=== PATIENT | male | born 1955 | race Caucasian/White ===

== ENCOUNTER 2024-05-14 13:50 | Outpatient (REF) | payer MEDICARE, BC, SELFPAY ==
[2024-05-14 15:47] LABS: MANUAL DIFF FLAG NO
[2024-05-14 16:12] LABS: Basophils Absolute Auto 0.1 X10*3/uL (0.0-0.2); Basophils Percent Auto 0.8 % (0-2); Eosinophils Absolute Auto 0.1 X10*3/uL (0.0-0.4); Eosinophils Percent Auto 2.1 % (0-4); Hematocrit 38.3 % (42.0-52.0); Hemoglobin 12.9 g/dl (14.0-18.0); Imm Gran Abs Auto 0.04 X10*3/uL (0.00-0.03); Imm Gran Pct Auto 0.6 % (0.0-0.4); Lymphocytes Absolute Auto 2.3 X10*3/uL (1.2-4.9); Lymphocytes Percent Auto 34.5 % (20-40); Mean Corpuscular HGB Conc 33.7 g/dl (31.0-36.0); Mean Corpuscular Hemoglobin 28.9 pg (27.0-33.0); Mean Corpuscular Volume 85.9 fL (80.0-98.0); Monocytes Absolute Auto 0.5 X10*3/uL (0.1-1.2); Monocytes Percent Auto 8.1 % (2-11); Neutrophils Absolute Auto 3.5 x10*3/uL (2.0-8.3); Neutrophils Percent Auto 53.9 % (45-73); Platelet Count 153 X10*3/uL (160-400); Red Blood Count 4.46 X10*6/uL (4.60-5.80); Red Cell Distribution Width 13.1 % (11.0-16.0); White Blood Count 6.5 X10*3/uL (4.8-10.8)
[2024-05-14 17:19] LABS: Alanine Aminotransferase 27 U/L (0-40); Albumin Level 3.7 g/dL (3.5-5.0); Alkaline Phosphatase 65 U/L (39-117); Anion Gap 8 (12-20); Aspartate Amino Transferase 29 U/L (5-37); Bilirubin Direct 0.3 mg/dL (0.0-0.5); Bilirubin Total 0.9 mg/dL (0.0-1.0); Blood Urea Nitrogen 15 mg/dL (9-16); Calcium 9.1 mg/dL (8.4-10.2); Carbon Dioxide 25 mmol/L (22-29); Chloride 108 mmol/L (96-108); Estimated Glomerular Filt Rate > 60; Glucose Random 82 mg/dL (60-115); Potassium 4.3 mmol/L (3.3-5.1); Sodium 137 mmol/L (135-145); Total Protein 8.6 g/dL (6.5-8.0)
--- OUTSIDE RECORDS SUMMARY | 2024-05-14 17:44 | XMS_ITS | Encounter Summary ---
Author Organization [facility] Address [address] [place] [address] Care Team Providers Care Foreclosure Specialist Name Role Phone Adam Rossi MD Primary Care Provider [phone] Jack Adkins MD Primary Care Provider [phone] Stephen Martins MD Primary Care Provider [phone] Fabian Correa MD Primary Care Provider [phone] Kathleen Ball DNP Unavailable [phone] Martha Crump NATURAL RESOURCE ECONOMIST BC Unavailable Unavail able Ewa Nino MD Primary Care Provider [phone] Encounter Details Date Type Department Care Team (Late st Contact Info) Description 07/19/2006 Orders Only [facility] Otolaryngology [address] [place] [address] [address] [place] [address] Alis Ortega, RN [address] [place] [id number] Social History Tobacco Use Types Packs/Day Years [...] 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 Not on file Not on file documented as of this encounter Plan of Treatment Not on file documented as of this encounter Visit Diagnoses Not on filedocumented in this encounter Care Teams Foreclosure Specialist Relationship Specialty Start Date End Date Adam Rossi MD [address] [place] [address] PCP - General 08/10/09 03/19/14 Jack Adkins MD [address] [place] [address] PCP - General 11/17/08 08/09/09 Stephen Martins MD [address] [place] [address] PCP - General 11/11/07 11/16/08 Fabian Correa MD [address] [place] [address] PCP - General 06/22/06 11/10/07 Kathleen Ball, ARIEL [address] [place] [address] PCP - Backup PCP 11/11/07 05/18/11 Martha Crump, NATURAL RESOURCE ECONOMIST [address] [place] [address] PCP - Backup PCP Internal Medicine 05/19/11 04/20/14 Ewa Nino MD [address] [place] [address] PCP - General Family Medicine 03/20/14 documented as of this encounter
--- OUTSIDE RECORDS SUMMARY | 2024-05-14 17:44 | XMS_ITS | Encounter Summary ---
Author Organization [facility] Address [address] [place] [address] Care Team Providers Care Manager Core Name Role Phone Adam Rossi MD Primary Care Provider [phone] Martha Crump APRN Unavailable Unavail able Eaw Nino MD Primary Care Provider [phone] Reason for Referral * OUTPT PROCEDURES AND DIAGNOSTICS (Routine) - ZZ Not Required Specialty Diagnoses / Procedures Referred By Contyeyo t Referred To Contact Diagnoses Snoring Procedures REQUEST FOR SLEEP STUDY NON-FC Pepe Kincaid MD [address] [place] [address] Phone: tel: fax: [facility] [address] [place] [address] Referral ID Status Reason Start Date Expiration Date Visits Requested Visits Authorized [id number] ZZ Not Required Specialty Services Required 03/14/2013 1 1 Encounter Details Date Type Department Care Team (Late st Contact Info) Description 03/14/2013 Orders Only [facility] Pulmonary [address] [facility] [address] [place] [address] Pepe Kincaid MD [address] [place] [address] Social History Tobacco Use Types [...] 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 file Not on file documented as of this encounter Plan of Treatment Scheduled Orders Name Type Priority Associated Diagnoses Orde r Schedule REQUEST FOR SLEEP STUDY NON-FC Procedures Routine Snoring Ordered: 03/14/2013 documented as of this encounter Visit Diagnoses Diagnosis Snoring- Primary Other dyspnea and respiratory abnormality documented in this encounter Care Teams Manager Core Relationship Specialty Start Date End Date Adam Rossi MD [address] [place] [address] PCP - General 08/10/09 03/19/14 Martha Crump APRN [address] [place] [address] PCP - Backup PCP Internal Medicine 05/19/11 04/20/14 Ewa Nino MD [address] [place] [address] PCP - General Family Medicine 03/20/14 documented as of this encounter
--- OUTSIDE RECORDS SUMMARY | 2024-05-14 17:45 | XMS_ITS | Encounter Summary ---
Author Organization [facility] Address [address] [place] [address] Care Team Providers Care Electrical Mechanic Name Role Phone Adam Rossi MD Primary Care Provider [phone] Jack Adkins MD Primary Care Provider [phone] Stephen Martins MD Primary Care Provider [phone] Fabian Correa MD Primary Care Provider [phone] Kathleen Ball DNP Unavailable [phone] Martha Crump DIRECTOR STRATEGIC ACCOUNT MANAGEMENT BC Unavailable Unavail able Ewa Nino MD Primary Care Provider [phone] Encounter Details Date Type Department Care Team (Late st Contact Info) Description 09/05/2006 Orders Only [facility] [address] [place] [phone] MD [address] [place] [address] Social History Tobacco Use Types Packs/Day Years [...] 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 Not on file documented as of this encounter Plan of Treatment Not on file documented as of this encounter Results * Due to [place] state law, this organization might not be [...] RESULT Final Resul t [facility] [address] [place] [address] documented in this encounter Visit Diagnoses Diagnosis OSTEOARTHRITIS- Primary Osteoarthrosis, unspecified whether generalized or localized, unspecified site OSTEOARTHRITIS Osteoarthrosis, unspecified whether generalized or localized, unspecified site documented in this encounter Care Teams Electrical Mechanic Relationship Specialty Start Date End Date Adam Rossi MD [address] [place] [address] PCP - General 08/10/09 03/19/14 Jack Adkins MD [address] [place] [address] PCP - General 11/17/08 08/09/09 Stephen Martins MD [address] [place] [address] PCP - General 11/11/07 11/16/08 Fabian Correa MD [address] [place] [address] PCP - General 06/22/06 11/10/07 Kathleen Ball DNP [address] [place] [address] PCP - Backup PCP 11/11/07 05/18/11 Martha rCump APRN [address] [place] [address] PCP - Backup PCP Internal Medicine 05/19/11 04/20/14 Ewa Nino MD [address] [place] [address] PCP - General Family Medicine 03/20/14 documented as of this encounter
--- OUTSIDE RECORDS SUMMARY | 2024-05-14 17:45 | XMS_ITS | Encounter Summary ---
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 [...] this encounter Procedures * Due to [place] law, this organization might not be sharing [...] [facility] Comment:{MITOCHONDRIAL AB SC REEN {[id number]) 05/25/2011 11:4 7 AM EDT 05/25/2011 6:28 PM EDT Narrative Resulting Agency Comment [id number] Kathleen Ball DNP LABORATORY Final Result [facility] [address] [place] [address] * HEPATITIS C ANTIBODY, SERUM (05/25/2011 11:47 AM EDT) Hepatitis C virus Ab NON-REACTI VE NON-REACT SOL[facility] Comment:{HEPATITIS C ANTIBOD Y {[id number]) Hepatitis C virus Ab Signal/Cutoff 0.07 <1.00 [facility] Comment:{SIGNAL TO CUT-OFF { [id number]) 05/25/2011 11:4 7 AM EDT 05/25/2011 6:28 PM EDT Narrative Resulting Agency Comment [id number] Kathleen Roman [facility] LABORATORY Final Result Performing Organization Address City/[facility] Co de Phone Number [facility] [address] [place] [address] * HEPATITIS A ANTIBODY, TOTAL WITH REFLEX TO IGM (05/25/2011 11:47 AM EDT) Hepatitis A virus Ab NON-REACTI VE NON-REACT SOLEDAD [facility] Comment:{HEPATITIS A AB, TOT AL W/REFL IGM {[id number]) 05/25/2011 11:4 7 AM EDT 05/25/2011 6:28 PM EDT Narrative Resulting Agency Comment [id number] Kathleen Ball [facility] Final Result Performing Organization Address [facility] de Phone Number [facility] [address] [place] [address] * HEPATITIS B CORE ANTIBODY, TOTAL, SERUM (05/25/2011 11:47 AM EDT) Hepatitis B virus core Ab NON-REACTI VE NON-REACT SOLEDAD [facility] Comment:{HEPATITIS B CORE AB TOTAL {[id number]) 05/25/2011 11:4 7 AM EDT 05/25/2011 6:28 PM EDT Narrative Resulting Agency Comment [id number] [address] [facility] Final Result Performing Organization Address City/[facility] Co de Phone Number [facility] [address] [place] [address] * HEPATITIS B SURFACE ANTIGEN (05/25/2011 11:47 AM EDT) Hepatitis B virus surface Ag NON-REACTI VE NON-REACT SOLEDAD [facility] Comment:{HEPATITIS B SURFACE ANTIGEN {[id number]) 05/25/2011 11:4 7 AM EDT 05/25/2011 6:28 PM EDT Narrative Resulting Agency Comment [id number] Kathleen [address] [facility] Final Result Performing Organization Address [facility] Co de Phone Number [facility] [address] [place] [address] * IRON PROFILE (IRON/TIBC), SERUM (05/25/2011 11:47 AM EDT) Iron 126 45 - 170 mcg/dL [facility] Comment:{IRON, TOTAL {[id number]) Iron binding capacity 375 250 - 425 mcg/dL [facility] Comment:{IRON BINDING CAPACI TY {[id number]) Iron saturation 34 20 - 50 % (calc) [facility] Comment:{% SATURATION {[id number]) 05/25/2011 11:4 7 AM EDT 05/25/2011 6:28 PM EDT Narrative Resulting Agency Comment [id number] Kathleen [address] [facility] Final Result Performing Organization Address [facility] de Phone Number [facility] [address] [place] [id number] * FERRITIN (05/25/2011 11:47 AM EDT) Ferritin 101 20 - 380 ng/mL [facility] Comment:{FERRITIN {[id number]) 05/25/2011 11:4 7 AM EDT 05/25/2011 6:28 PM EDT Narrative Resulting Agency Comment [id number] Kathleen Ball [facility] Final Result Performing Organization Address [facility] Co de Phone Number [facility] [address] [place] [address] * (ABNORMAL) HEPATIC FUNCTION PANEL (05/25/2011 11:47 AM EDT) Protein Total (Serum) 6.9 6.2 - 8.3 g/dL [facility] Comment:{PROTEIN, TOTAL {[id number]) Albumin 4.6 3.6 - 5.1 g/dL [facility] Comment:{ALBUMIN {[id number]) Globulin 2.3 2.1 - 3.7 g/dL (calc) [facility] Comment:{GLOBULIN {[id number]) Albumin/Globulin 2.0 1.0 - 2.1 (calc) [facility] Comment:{ALBUMIN/GLOBULIN RA FABIOLA {[id number]) Bilirubin Total 0.9 0.2 - 1.2 mg/dL [facility] Comment:{BILIRUBIN, TOTAL {[id number]) Bilirubin Direct 0.2 < OR = 0.2 mg/dL [facility] Comment:{BILIRUBIN, DIRECT { [id number]) Bilirubin Indirect 0.7 0.2 - 1.2 mg/dL (calc) [facility] Comment:{BILIRUBIN, INDIRECT {[id number]) Alkaline phosphatase 48 40 - 115 U/L [facility] Comment:{ALKALINE PHOSPHATAS E {[id number]) AST (SGOT) 38(H) 10 - 35 U/L [facility] Comment:{AST {[id number]) ALT (SGPT) 68(H) 9 - 60 U/L [facility] Comment:{ALT {[id number]) 05/25/2011 11:4 7 AM EDT 05/25/2011 6:28 PM EDT Narrative Resulting Agency Comment [id number] Kathleen Ball DNP LABORATORY Final Result [facility] [address] [place] [address] * PROSTATE SPECIFIC ANTIGEN (PSA) TOTAL, SERUM (05/23/2011 9:30 AM EDT) PSA 0.6 < OR = 4.0 ng/mL [facility] Comment: {PSA, TOTAL {[id number]) This test was performed using the Siemens chemiluminescent method. Values obtained from different assay methods cannot be used interchangeably. PSA levels, regardless of value, should not be interpreted as absolute evidence of the presence or absence of disease. 05/23/2011 9:30 AM EDT 05/23/2011 7:57 PM EDT Narrative Resulting Agency Comment [id number] Kathleen Roman Lizzy DNP LABORATORY Final Result [facility] [address] [place] [address] * BASIC METABOLIC PANEL WITH (GFR) (05/23/2011 9:30 AM EDT) Glucose 90 65 - 99 mg/dL [facility] Comment: {GLUCOSE {[id number]) ? Fasting reference interval Urea Nitrogen Blood (BUN) 17 7 - 25 mg/dL [facility] Comment:{UREA NITROGEN (BUN) {[id number]) Creatinine 0.74 0.70 - 1.33 mg/dL [facility] Comment: {CREATININE {[id number]) For patients >49 years of age, the reference limit for Creatinine is approximately 13% higher for people identified as -Vietnamese. GFR 105 > OR = 60 mL/min/1 .73m2 [facility] Comment:{eGFR NON-AFR. AMERI CAN {[id number]) GFR () 122 > OR = 60 mL/min/1 .73m2 [facility] Comment:{eGFR AMERIC AN {[id number]) BUN/Creatinine Ratio NOT APPLICABLE 6 - 22 (calc) [facility] Comment:{BUN/CREATININE RATI O {[id number]) Sodium 137 135 - 146 mmol/L [facility] Comment:{SODIUM {[id number]) Potassium 4.0 3.5 - 5.3 mmol/L [facility] Comment:{POTASSIUM {[id number]) Chloride 103 98 - 110 mmol/L [facility] Comment:{CHLORIDE {[id number]) Carbon dioxide 22 21 - 33 mmol/L [facility] Comment:{CAR[place] DIOXIDE {[id number]) Calcium 9.6 8.6 - 10.3 mg/dL [facility] Comment:{CALCIUM {[id number]) 05/23/2011 9:30 AM EDT 05/23/2011 7:57 [...] needs for GFR calculation. Resulting Agency Comment [id number] Kathleen Ball [facility] Final Result Performing Organization Address City/[facility]/ZIP Co de Phone Number [facility] [address] [place] [address] * (ABNORMAL) ALANINE AMINOTRANSFERASE (ALT), SERUM (05/23/2011 9:30 AM EDT) ALT (SGPT) 78(H) 9 - 60 U/L [facility] Comment:{ALT {[id number]) 05/23/2011 9:30 AM EDT 05/23/2011 7:57 PM EDT Narrative Resulting Agency Comment [id number] Kathleen Ball [facility] SAME DAY RESULT Final Re sult Performing Organization Address [facility] Co de Phone Number [facility] [address] [place] [address] * (ABNORMAL) LIPID PANEL WITH REFLEX TO DIRECT LDL (05/23/2011 9:30 AM EDT) Cholesterol 230(H) 125 - 200 mg/dL [facility] Comment:{CHOLESTEROL, TOTAL {[id number]) HDL Cholesterol 59 > OR = 40 mg/dL [facility] Comment:{HDL CHOLESTEROL {[id number]) Triglyceride 81 <150 mg/dL [facility] Comment:{TRIGLYCERIDES {[id number]) LDL Cholesterol 155(H) <130 mg/dL (calc) [facility] Comment: {LDL-CHOLESTEROL {[id number]) Desirable range <100 mg/dL for patients with CHD or diabetes and <70 mg/dL for diabetic patients with known heart disease. CHOL/HDL Ratio 3.9 < OR = 5.0 (calc) [facility] Comment:{CHOL/HDLC RATIO {[id number]) Cholesterol Non-HDL 171 mg/dL (calc) [facility] Comment: {NON-HDL CHOLESTEROL {[id number]) Target for non-HDL cholesterol is 30 mg/dL higher than LDL cholesterol target. 05/23/2011 9:30 AM EDT 05/23/2011 7:57 PM EDT Narrative Resulting Agency Comment [id number] Kathleen Ball [facility] Final Result [facility] [address] [place] [address] documented in this encounter Visit Diagnoses Diagnosis HTN (hypertension) Unspecified essential hypertension Lipid screening Screening for lipoid disorders Screening for prostate cancer Special screening for malignant neoplasm of prostate LFT elevation Other abnormal blood chemistry Obesity Obesity, unspecified documented in this encounter Care Teams Handkerchief Folder Relationship Specialty Start Date End Date Adam Rossi MD [address] [place] [address] PCP - General 08/10/09 03/19/14 Martha Crump, ANIMAL ECOLOGIST [address] [place] [address] PCP - Backup PCP Internal Medicine 05/19/11 04/20/14 Ewa Nino MD [address] [place] [address] PCP - General Family Medicine 03/20/14 documented as of this encounter
--- OUTSIDE RECORDS SUMMARY | 2024-05-14 17:45 | XMS_ITS | Encounter Summary ---
Author Organization [facility] Address [address] [place] [address] Care Team Providers Care Cullet Crusher And Washer Name Role Phone Adam Rossi MD Primary Care Provider [phone] Jack Adknis MD Primary Care Provider [phone] Stephen Martins MD Primary Care Provider Fabian Correa MD Primary Care Provider [phone] Kathleen Ball DNP Unavailable [phone] Martha Crump SPECIAL EDUCATION TEACHER BC Unavailable Unavail able Ewa Nino MD Primary Care Provider [phone] Encounter Details Date Type Department Care Team (Late st Contact Info) Description 09/04/2006 Orders Only [facility] Otolaryngology [address] [facility] [address] [place] [address] Eloisa Johnston, RN MSN Social History Tobacco [...] 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 Not on file documented as of this encounter Plan of Treatment Not on file documented as of this encounter Visit Diagnoses Not on filedocumented in this encounter Care Teams Cullet Crusher And Washer Relationship Specialty Start Date End Date Adam Rossi MD [address] [place] [address] PCP - General 08/10/09 03/19/14 Jack Adkins MD [address] [place] [address] PCP - General 11/17/08 08/09/09 Stephen Martins MD [address] [place] [address] PCP - General 11/11/07 11/16/08 Fabian Correa MD [address] [place] [address] PCP - General 06/22/06 11/10/07 Kathleen Ball, [facility] [address] [place] [address] PCP - Backup PCP 11/11/07 05/18/11 Martha Crump, SPECIAL EDUCATION TEACHER [address] [place] [address] PCP - Backup PCP Internal Medicine 05/19/11 04/20/14 Ewa Nino MD [address] [place] [address] PCP - General Family Medicine 03/20/14 documented as of this encounter
--- OUTSIDE RECORDS SUMMARY | 2024-05-14 17:45 | XMS_ITS | Encounter Summary ---
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 Procedure Name Priority Date/Time Associated Diagnosis Comments CK, CREATINE KINASE (CPK, TOTAL) Routine 01/14/2010 OSTEOARTHRITIS documented in this encounter Results * Due to [place] H2[employer] law, this organization might not be sharing [...] RESULT Final Resul t Performing Organization Address City/State/[facility] Co de Phone Number [facility] [address] [place] [address] documented in this encounter Visit Diagnoses Diagnosis OSTEOARTHRITIS Osteoarthrosis, unspecified whether generalized or localized, unspecified site documented in this encounter Care Teams Engineering Job Titles Relationship Specialty Start Date End Date Adam Rossi MD [address] [place] [address] PCP - General 08/10/09 03/19/14 Kathleen Ball DNP [address] [place] [address] PCP - Backup PCP 11/11/07 05/18/11 Martha Crump, UI PROGRAMMER [address] [place] [address] PCP - Backup PCP Internal Medicine 05/19/11 04/20/14 Ewa Nino MD [address] [place] [address] PCP - General Family Medicine 03/20/14 documented as of this encounter
--- OUTSIDE RECORDS SUMMARY | 2024-05-14 17:45 | XMS_ITS | Encounter Summary ---
Author Organization [facility] Address [address] [place] [address] Care Team Providers Care Legal Executive Name Role Phone Adam Rossi MD Primary Care Provider Kathleen Ball DNP Unavailable [phone] Martha Crump WORKFORCE DEVELOPMENT VICE PRESIDENT BC Unavailable Unavail able Ewa Nino MD Primary Care Provider [phone] Encounter Details Date Type Department Care Team (Late st Contact Info) Description 01/14/2010 Orders Only [facility] [address] [place] [address] Adam Rossi MD [address] [place] [address] Social History Tobacco Use Types Packs/Day Years [...] 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 documented in this encounter Plan of Treatment Not on file documented as of this encounter Procedures * Due to [place] [employer] law, this organization might not be sharing [...] in this encounter Results * Due to [place] [employer] law, this organization might not be sharing negative HIV tests. * PSA (PROSTATE SPECIFIC AG) TOTAL DIAGNOSTIC OR FOLLOW-UP (01/14/2010) PSA 0.5 0 - 4.0 NG/ML [facility] Comment: THIS TEST WAS PERFORMED USING THE SIEMENS ([employer]) CHEMILUMINESCENT METHOD. VALUES OBTAINED FROM DIFFERENT ASSAY METHODS CANNOT BE USED INTERCHANGEABLY. PSA LEVELS, REGARDLESS OF VALUE, SHOULD NOT BE INTERPRETED ABSOLUTE EVIDENCE OF THE PRESENCE OR ABSENCE OF DISEASE. 01/14/2010 01/14/2010 3:1 2 PM EST Adam Rossi MD LABORATORY Final Result Performing Organization Address City/State/[facility] Co de Phone Number [facility] [address] [place] [address] * (ABNORMAL) CBC 5 PART DIFF (01/14/2010) [...] RESULT Final Res ult [facility] [address] [place] [address] * (ABNORMAL) BASIC METABOLIC PANEL W/GLOMERULAR FILTRATION [...] MD LABORATORY Final Result Performing Organization Address [facility] de Phone Number [facility] [address] [place] [address] * ALANINE AMINOTRANSFERASE (ALT), SERUM (01/14/2010) ALT (SGPT) 46 9 - 60 U/L [facility] 01/14/2010 01/14/2010 3:1 2 PM EST Adam Rossi MD LAB SAME DAY RESULT Final Res ult Performing Organization Address [facility] de Phone Number [facility] [address] [place] [address] * (ABNORMAL) LIPID PANEL + CARDIAC RISK [...] Performing Organization Address [facility] de Phone Number [facility] [address] [place] [address] documented in this encounter Visit Diagnoses Diagnosis Hyperlipidemia Other and unspecified hyperlipidemia Obesity Obesity, unspecified Chronic back pain Backache, unspecified Screening for condition Screening for unspecified condition documented in this encounter Care Teams Legal Executive Relationship Specialty Start Date End Date Adam Rossi MD [address] [place] [address] PCP - General 08/10/09 03/19/14 Kathleen Ball DNP [address] [place] [address] PCP - Backup PCP 11/11/07 05/18/11 Martha Crump, WORKFORCE DEVELOPMENT VICE PRESIDENT BC [address] [place] [address] PCP - Backup PCP Internal Medicine 05/19/11 04/20/14 Ewa Nino MD [address] [place] [address] PCP - General Family Medicine 03/20/14 documented as of this encounter
--- OUTSIDE RECORDS SUMMARY | 2024-05-14 17:45 | XMS_ITS | Encounter Summary ---
Author Organization [facility] Address [address] [place] [address] Care Team Providers Care Systems Integration Engineer Name Role Phone Adam Rossi MD Primary Care Provider [phone] Kathleen Ball DNP Unavailable [phone] Martha Crump SYSTEMS SOFTWARE DESIGNER BC Unavailable Unavail able Ewa Nino MD Primary Care Provider [phone] Encounter Details Date Type Department Care Team (Late st Contact Info) Description 01/14/2010 Orders Only [facility] [address] [place] [address] Kathleen Ball, DNP [address] [place] [address] Social History Tobacco Use Types Packs/Day Years [...] 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 on file Not on file documented as of this encounter Plan of Treatment Not on file documented as of this encounter Visit Diagnoses Diagnosis Special screening for malignant neoplasms, colon Screening for prostate cancer Special screening for malignant neoplasm of prostate documented in this encounter Care Teams Systems Integration Engineer Relationship Specialty Start Date End Date Adam Rossi MD [address] [place] [address] PCP - General 08/10/09 03/19/14 Kathleen Ball DNP [address] [place] [address] PCP - Backup PCP 11/11/07 05/18/11 Martha Crump APRN [address] [place] [address] PCP - Backup PCP Internal Medicine 05/19/11 04/20/14 Ewa Nino MD [address] [place] [address] PCP - General Family Medicine 03/20/14 documented as of this encounter
--- OUTSIDE RECORDS SUMMARY | 2024-05-14 17:45 | XMS_ITS | Encounter Summary ---
Author Organization [facility] Address [address] [place] [address] Care Team Providers Care Vehicle Painter Name Role Phone Adam Rossi MD Primary Care Provider [phone] Kathleen Ball DNP Unavailable [phone] Martha Crump TECHNICAL AID BC Unavailable Unavail able Ewa Nino MD Primary Care Provider [phone] Encounter Details Date Type Department Care Team (Late st Contact Info) Description 08/03/2010 Orders Only [facility] [address] [place] [address] Kathleen Ball, DNP [address] [place] [address] Social History Tobacco Use Types Packs/Day Years [...] 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 Procedure Name Priority Date/Time Associated Diagnosis Comments URIC ACID Routine 08/03/2010 Left foot pain documented in this encounter Results * Due to [place] state law, this organization might not be sharing negative HIV tests. * URIC ACID (08/03/2010) URIC ACID, SERUM 5.7 4.0 - 8.0 MG/DL [facility] 08/03/2010 08/03/2010 6:1 2 PM EDT Kathleen Ball DNP LABORATORY Final Result [facility] [address] [place] [address] documented in this encounter Visit Diagnoses Diagnosis Left foot pain Pain in limb documented in this encounter Care Teams Vehicle Painter Relationship Specialty Start Date End Date Adam Rossi MD [address] [place] [address] PCP - General 08/10/09 03/19/14 Kathleen Ball DNP [address] [place] [address] PCP - Backup PCP 11/11/07 05/18/11 Martha Crump, BO [address] [place] [address] PCP - Backup PCP Internal Medicine 05/19/11 04/20/14 Ewa Nino MD [address] [place] [address] PCP - General Family Medicine 03/20/14 documented as of this encounter
--- OUTSIDE RECORDS SUMMARY | 2024-05-14 17:45 | XMS_ITS | Encounter Summary ---
Author Organization [facility] Address [address] [place] [address] Care Team Providers Care Software Licensing Analyst Name Role Phone Adam Rossi MD Primary Care Provider [phone] Jack Adkins MD Primary Care Provider [phone] Stephen Martins MD Primary Care Provider [phone] Fabian Correa MD Primary Care Provider [phone] Kathleen Ball DNP Unavailable [phone] Martha Crump MANAGER ANIMAL BC Unavailable Unavail able Ewa Nino MD Primary Care Provider [phone] Encounter Details Date Type Department Care Team (Late st Contact Info) Description 07/19/2006 Orders Only [facility] Otolaryngology [address] [facility] [address] [place] [address] Vicenta Pinto, 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 on file Not on file documented as of this encounter Plan of Treatment Not on file documented as of this encounter Visit Diagnoses Not on filedocumented in this encounter Care Teams Software Licensing Analyst Relationship Specialty Start Date End Date Adam Rossi MD [address] [place] [address] PCP - General 08/10/09 03/19/14 Jack Adkins MD [address] [place] [address] PCP - General 11/17/08 08/09/09 Stephen Martins MD [address] [place] [address] PCP - General 11/11/07 11/16/08 Fabian Correa MD [address] [place] [address] PCP - General 06/22/06 11/10/07 Kathleen Ball, ARIEL [address] [place] [address] PCP - Backup PCP 11/11/07 05/18/11 Martha Crump, [facility] [address] [place] [address] PCP - Backup PCP Internal Medicine 05/19/11 04/20/14 Ewa Nino MD [address] [place] [address] PCP - General Family Medicine 03/20/14 documented as of this encounter
--- OUTSIDE RECORDS SUMMARY | 2024-05-14 17:45 | XMS_ITS | Encounter Summary ---
Author Organization [facility] Address [address] [place] [address] Care Team Providers Care Laboratory Monitor Name Role Phone Adam Rossi MD Primary Care Provider [phone] Jack Adkins MD Primary Care Provider [phone] Stephen Martins MD Primary Care Provider [phone] Fabian Correa MD Primary Care Provider [phone] Kathleen Ball DNP Unavailable [phone] Martha Crump LIME PLANT OPERATOR BC Unavailable Unavail able Ewa Nino MD Primary Care Provider [phone] Encounter Details Date Type Department Care Team (Late st Contact Info) Description 07/25/2006 Orders Only [facility] General Vascular Surgery [address] [facility] [address] [place] [address] Geraldo Souza MD Medications Social History Tobacco [...] 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 Not on file Not on file documented as of this encounter Plan of Treatment Not on file documented as of this encounter Visit Diagnoses Not on filedocumented in this encounter Care Teams Laboratory Monitor Relationship Specialty Start Date End Date Adam Rossi MD [address] [place] [address] PCP - General 08/10/09 03/19/14 Jack Adkins MD [address] [place] [address] PCP - General 11/17/08 08/09/09 Stephen Martins MD [address] [place] [address] PCP - General 11/11/07 11/16/08 Fabian Correa MD [address] [place] [address] PCP - General 06/22/06 11/10/07 Kathleen Ball, DNP [address] [place] [address] PCP - Backup PCP 11/11/07 05/18/11 Martha Crump, LIME PLANT OPERATOR [address] [place] [address] PCP - Backup PCP Internal Medicine 05/19/11 04/20/14 Ewa Nino MD [address] [place] [address] PCP - General Family Medicine 03/20/14 documented as of this encounter
--- OUTSIDE RECORDS SUMMARY | 2024-05-14 17:45 | XMS_ITS | Clinical Summary ---
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 * HEPATITIS C ANTIBODY, SERUM (05/25/2011 11:47 AM EDT) Hepatitis C virus Ab NON-REACTI VE NON-REACT SOL[facility]AD [facility] Comment:{HEPATITIS C ANTIBOD Y {[id number]) Hepatitis C virus Ab Signal/Cutoff 0.07 <1.00 [facility] Comment:{SIGNAL TO CUT-OFF { [id number]) 05/25/2011 11:4 7 AM EDT 05/25/2011 6:28 PM EDT Narrative Resulting Agency Comment [id number] us Kathleen Ball DNP LABORATORY Final Result [facility] [address] [place] [address] * MRI ABDOMEN W/O CONTRAST MATERIAL(S) FOLLOWED [...] LIVER CYST TEST(S) PROCESSED BY [facility] AT [facility] Kathleen Ball DNP CONTRAST STUDY- OTHER Final Result from Last 3 Months or Most Recently Relevant to Health Maintenance Insurance [facility] FFS FEDERAL Care Teams Facility Rehab Director Relationship Specialty Start Date End Date Ewa Nino MD PCP - General Family Medicine 03/20/14
--- OUTSIDE RECORDS SUMMARY | 2024-05-14 17:45 | XMS_ITS | Encounter Summary ---
Author Organization [facility] Address [address] [place] [address] Care Team Providers Care Solar Installation Foreman Name Role Phone Adam Rossi MD Primary Care Provider Jack Adkins MD Primary Care Provider Stephen Martins MD Primary Care Provider [phone] Kathleen Ball DNP Unavailable [phone] Martha Crump APRN Unavailable Unavail able Ewa Nino MD Primary Care Provider [phone] Reason for Referral * OUTPT P&D-MED SOLUTIONS (Routine) - ZZ Not Required Specialty Diagnoses / Procedures Referred By Susy garrido Referred To Contact Magnetic Resonance Imaging Diagnoses Liver cyst Back pain Procedures REQUEST FOR MRI ABDOMEN W/O CONTRAST FC Kathleen Ball DNP [address] [place] [address] Phone: tel: fax: [address] [place] [address] Magnetic Resonance Imaging [address] [place] [address] Phone: tel: Referral ID Status Reason Start Date Expiration Date Visits Requested Visits Authorized [id number] ZZ Not Required Specialty Services Required 09/03/2008 1 1 Encounter Details Date Type Department Care Team (Late st Contact Info) Description 09/03/2008 Orders Only [facility] [address] [place] [id number] Kathleen Ball DNP [address] [place] [address] Social History Tobacco Use Types Packs/Day Years [...] 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 Procedure Name Priority Date/Time Associated Diagnosis Comments MRI ABDOMEN W/O CONTRAST MATERIAL(S) FOLLOWED BY CONTRAST MATERIAL(S) AND Routine 09/08/2008 9:45 AM EDT documented in this encounter Results * Due to [place] [employer] law, this organization might not be sharing [...] LIVER CYST TEST(S) PROCESSED BY [facility] AT [facility] Kathleen Ball DNP CONTRAST STUDY- OTHER Final Result documented in this encounter Visit Diagnoses Diagnosis Liver cyst Other specified disorders of liver Back pain Backache, unspecified documented in this encounter Care Teams Solar Installation Foreman Relationship Specialty Start Date End Date Adam Rossi MD [address] [place] [address] PCP - General 08/10/09 03/19/14 Jack Adkins MD [address] [place] [address] PCP - General 11/17/08 08/09/09 Stephen Martins MD [address] [place] [address] PCP - General 11/11/07 11/16/08 Kathleen Ball DNP [address] [place] [address] PCP - Backup PCP 11/11/07 05/18/11 Martha Crump, COSTING MANAGER [address] [place] [address] PCP - Backup PCP Internal Medicine 05/19/11 04/20/14 Ewa Nino MD [address] [place] [address] PCP - General Family Medicine 03/20/14 documented as of this encounter
--- OUTSIDE RECORDS SUMMARY | 2024-05-14 17:45 | XMS_ITS | Encounter Summary ---
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 Author Blood Pressure < 140/90 Blood Pressure 145/85( 014 12:55 PM EST) No Kayla Winter CMA documented as of this encounter Results * Due to [place] state law, this organization might not be [...] limb documented in this encounter Care Teams Title One Reading Teacher Relationship Specialty Start Date End Date Ewa Nino MD PCP - General Family Medicine 03/20/14 documented as of this encounter
--- OUTSIDE RECORDS SUMMARY | 2024-05-14 17:45 | XMS_ITS | Encounter Summary ---
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 Not on file Not on file documented as of this encounter Plan of Treatment Not on file documented as of this encounter Procedures * Due to [place] state law, this [...] [facility] Comment:{MITOCHONDRIAL AB SC REEN {[id number]) 05/25/2011 11:4 7 AM EDT 05/25/2011 6:28 PM EDT Narrative Resulting Agency Comment [id number] Kathleen Ball DNP LABORATORY Final Result [facility] [address] [place] [address] * HEPATITIS C ANTIBODY, SERUM (05/25/2011 11:47 AM EDT) Hepatitis C virus Ab NON-REACTI VE NON-REACT SOLEDAD [facility] Comment:{HEPATITIS C ANTIBOD Y {[id number]) Hepatitis C virus Ab Signal/Cutoff 0.07 <1.00 [facility] Comment:{SIGNAL TO CUT-OFF { [id number]) 05/25/2011 11:4 7 AM EDT 05/25/2011 6:28 PM EDT Narrative Resulting Agency Comment [id number] Kathleen Garcianvwillard [facility] Final Result [facility] [address] [place] [address] * HEPATITIS A ANTIBODY, TOTAL WITH REFLEX TO IGM (05/25/2011 11:47 AM EDT) Hepatitis A virus Ab NON-REACTI VE NON-REACT SOLEDAD [facility] Comment:{HEPATITIS A AB, TOT AL W/REFL IGM {[id number]) 05/25/2011 11:4 7 AM EDT 05/25/2011 6:28 PM EDT Narrative Resulting Agency Comment [id number] Kathleen Garcianvwillard [facility] Final Result Performing Organization Address [facility] Co de Phone Number [facility] [address] [place] [address] * HEPATITIS B CORE ANTIBODY, TOTAL, SERUM (05/25/2011 11:47 AM EDT) Hepatitis B virus core Ab NON-REACTI VE NON-REACT SOLEDAD [facility] Comment:{HEPATITIS B CORE AB TOTAL {[id number]) 05/25/2011 11:4 7 AM EDT 05/25/2011 6:28 PM EDT Narrative Resulting Agency Comment [id number] Kathleen Garcianvwillard [facility] Final Result [facility] [address] [place] [address] * HEPATITIS B SURFACE ANTIGEN (05/25/2011 11:47 AM EDT) Hepatitis B virus surface Ag NON-REACTI VE NON-REACT SOLEDAD [facility] Comment:{HEPATITIS B SURFACE ANTIGEN {[id number]) 05/25/2011 11:4 7 AM EDT 05/25/2011 6:28 PM EDT Narrative Resulting Agency Comment [id number] [facility] Final Result Performing Organization Address [facility] de Phone Number [facility] [address] [place] [address] * IRON PROFILE (IRON/TIBC), SERUM (05/25/2011 11:47 AM EDT) Iron 126 45 - 170 mcg/dL [facility] Comment:{IRON, TOTAL {[id number]) Iron binding capacity 375 250 - 425 mcg/dL [facility] Comment:{IRON BINDING CAPACI TY {[id number]) Iron saturation 34 20 - 50 % (calc) [facility] Comment:{% SATURATION {[id number]) 05/25/2011 11:4 7 AM EDT 05/25/2011 6:28 PM EDT Narrative Resulting Agency Comment [id number] [facility] Final Result Performing Organization Address [facility] de Phone Number [facility] [address] [place] [address] * FERRITIN (05/25/2011 11:47 AM EDT) Pathologist [facility] Ferritin 101 20 - 380 ng/mL [facility] Comment:{FERRITIN {[id number]) 05/25/2011 11:4 7 AM EDT 05/25/2011 6:28 PM EDT Narrative Resulting Agency Comment [id number] [facility] Final Result Performing Organization Address [facility] de Phone Number [facility] [address] [place] [address] * (ABNORMAL) HEPATIC FUNCTION PANEL (05/25/2011 11:47 AM EDT) Protein Total (Serum) 6.9 6.2 - 8.3 g/dL [facility] Comment:{PROTEIN, TOTAL {[id number]) Albumin 4.6 3.6 - 5.1 g/dL [facility] Comment:{ALBUMIN {[id number]) Globulin 2.3 2.1 - 3.7 g/dL (calc) [facility] Comment:{GLOBULIN {[id number]) Albumin/Globulin 2.0 1.0 - 2.1 (calc) [facility] Comment:{ALBUMIN/GLOBULIN RA FABIOLA {[id number]) Bilirubin Total 0.9 0.2 - 1.2 mg/dL [facility] Comment:{BILIRUBIN, TOTAL {[id number]) Bilirubin Direct 0.2 < OR = 0.2 mg/dL [facility] Comment:{BILIRUBIN, DIRECT { [id number]) Bilirubin Indirect 0.7 0.2 - 1.2 mg/dL (calc) [facility] Comment:{BILIRUBIN, INDIRECT {[id number]) Alkaline phosphatase 48 40 - 115 U/L [facility] Comment:{ALKALINE PHOSPHATAS E {[id number]) AST (SGOT) 38(H) 10 - 35 U/L [facility] Comment:{AST {[id number]) ALT (SGPT) 68(H) 9 - 60 U/L [facility] Comment:{ALT {[id number]) 05/25/2011 11:4 7 AM EDT 05/25/2011 6:28 PM EDT Narrative Resulting Agency Comment [id number] Kathleen Ball DNP LABORATORY Final Result Performing Organization Address City/State/[facility] Co de Phone Number [facility] [address] [place] [address] documented in this encounter Visit Diagnoses Diagnosis LFT elevation Other abnormal blood chemistry Obesity Obesity, unspecified documented in this encounter Care Teams Artillery Officer Relationship Specialty Start Date End Date Adam Rossi MD [address] [place] [address] PCP - General 08/10/09 03/19/14 Martha Crump, TAP GRINDER [address] [place] [address] PCP - Backup PCP Internal Medicine 05/19/11 04/20/14 Ewa Nino MD [address] [place] [address] PCP - General Family Medicine 03/20/14 documented as of this encounter
--- OUTSIDE RECORDS SUMMARY | 2024-05-14 17:45 | XMS_ITS | Encounter Summary ---
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 * HEPATIC FUNCTION PANEL (01/16/2013 7:04 AM EST) Protein Total (Serum) 6.8 6.1 - 8.1 g/dL [facility] Comment:{PROTEIN, TOTAL {[id number]) Albumin 4.5 3.6 - 5.1 g/dL [facility] Comment:{ALBUMIN {[id number]) Globulin 2.3 1.9 - 3.7 g/dL (calc) [facility] Comment:{GLOBULIN {[id number]) Albumin/Globulin 2.0 1.0 - 2.5 (calc) [facility] Comment:{ALBUMIN/GLOBULIN RA FABIOLA {[id number]) Bilirubin Total 1.0 0.2 - 1.2 mg/dL [facility] Comment:{BILIRUBIN, TOTAL {[id number]) Bilirubin Direct 0.2 < OR = 0.2 mg/dL [facility] Comment:{BILIRUBIN, DIRECT { [id number]) Bilirubin Indirect 0.8 0.2 - 1.2 mg/dL (calc) [facility] Comment:{BILIRUBIN, INDIRECT {[id number]) Alkaline phosphatase 47 40 - 115 U/L [facility] Comment:{ALKALINE PHOSPHATAS E {[id number]) AST (SGOT) 30 10 - 35 U/L [facility] Comment:{AST {[id number]) ALT (SGPT) 38 9 - 46 U/L [facility] Comment:{ALT {[id number]) 01/16/2013 7:04 AM EST 01/16/2013 6:28 PM EST Narrative Resulting Agency Comment [id number] Martha Crump APRN LABORATORY Final Re sult [facility] [address] [place] [address] * (ABNORMAL) BASIC METABOLIC PANEL WITH (GFR) (01/16/2013 7:04 AM EST) Glucose 106(H) 65 - 99 mg/dL [facility] Comment: {GLUCOSE {[id number]) ? Fasting reference interval Urea Nitrogen Blood (BUN) 21 7 - 25 mg/dL [facility] Comment:{UREA NITROGEN (BUN) {[id number]) Creatinine 0.82 0.70 - 1.33 mg/dL [facility] Comment: {CREATININE {[id number]) For patients >49 years of age, the reference limit for Creatinine is approximately 13% higher for people identified as -[place]. GFR 100 > OR = 60 mL/min/1 .73m2 [facility] Comment:{eGFR NON-AFR. AMERI CAN {[id number]) GFR () 115 > OR = 60 mL/min/1 .73m2 [facility] Comment:{eGFR AMERIC AN {[id number]) BUN/Creatinine Ratio NOT APPLICABLE 6 - (calc) [facility] Comment:{BUN/CREATININE RATI O {[id number]) Sodium 138 135 - 146 mmol/L [facility] Comment:{SODIUM {[id number]) Potassium 4.4 3.5 - 5.3 mmol/L [facility] Comment:{POTASSIUM {[id number]) Chloride 103 98 - 110 mmol/L [facility] Comment:{CHLORIDE {[id number]) Carbon dioxide 25 19 - 30 mmol/L [facility] Comment:{CARBON DIOXIDE {[id number]) Calcium 9.5 8.6 - 10.3 mg/dL [facility] Comment:{CALCIUM {[id number]) 01/16/2013 7:04 AM EST 01/16/2013 6:28 [...] needs for GFR calculation. Resulting Agency Comment [id number] Martha Crump APRN BC LABORATORY Final Re sult [facility] [address] [place] [address] * (ABNORMAL) LIPID PANEL WITH REFLEX TO DIRECT LDL (01/16/2013 7:04 AM EST) Cholesterol 226(H) 125 - 200 mg/dL [facility] Comment:{CHOLESTEROL, TOTAL {[id number]) HDL Cholesterol 52 > OR = 40 mg/dL [facility] Comment:{HDL CHOLESTEROL {[id number]) Triglyceride 72 <150 mg/dL [facility] Comment:{TRIGLYCERIDES {[id number]) LDL Cholesterol 160(H) <130 mg/dL (calc) [facility] Comment: {LDL-CHOLESTEROL {[id number]) Desirable range <100 mg/dL for patients with CHD or diabetes and <70 mg/dL for diabetic patients with known heart disease. CHOL/HDL Ratio 4.3 < OR = 5.0 (calc) [facility] Comment:{CHOL/HDLC RATIO {[id number]) Cholesterol Non-HDL 174(H) mg/dL (calc) [facility] Comment: {NON HDL CHOLESTEROL {[id number]) Target for non-HDL cholesterol is 30 mg/dL higher than LDL cholesterol target. 01/16/2013 7:04 AM EST 01/16/2013 6:28 PM EST Narrative Resulting Agency Comment [id number] Martha Crump APRN LABORATORY Final Re sult Performing Organization Address City/State/[facility] Co de Phone Number [facility] [address] [place] [address] * (ABNORMAL) HEMOGLOBIN A1C (01/16/2013 7:04 AM EST) Hemoglobin A1C 5.9(H) <5.7 % of total Hgb [facility] Comment: {HEMOGLOBIN A1c {[id number]) According to ADA guidelines, hemoglobin A1c <7.0% [...] mg/dL (calc) [facility] Comment:{MEAN PLASMA GLUCOSE {[id number]) 01/16/2013 7:04 AM EST 01/16/2013 6:28 PM EST Narrative Resulting Agency Comment [id number] Martha Crump PIPE WRAPPING MACHINE OPERATOR LABORATORY Final Re sult [facility] [address] [place] [address] documented in this encounter Visit Diagnoses Diagnosis Hyperlipidemia- Primary Other and unspecified hyperlipidemia Hypertension goal BP (blood pressure) < 130/80 Unspecified essential hypertension Elevated glycohemoglobin Other abnormal blood chemistry documented in this encounter Care Teams Drying Rack Changer Relationship Specialty Start Date End Date Adam Rossi MD [address] [place] [address] PCP - General 08/10/09 03/19/14 Martha Crump, BO [address] [place] [address] PCP - Backup PCP Internal Medicine 05/19/11 04/20/14 Ewa Nino MD [address] [place] [address] PCP - General Family Medicine 03/20/14 documented as of this encounter
[2024-05-15 05:09] LABS: Hepatitis B Surface Ab Qnt <5 mIU/mL (> OR = 10)
[2024-05-15 08:14] LABS: Syphilis Screen Nonreactive (Nonreactive)
[2024-05-15 08:45] LABS: HBc Num1 0.08 S/CO (0.00-0.79); HBsAGNum1 0.36 S/CO (0.00-0.99); HIV AB/AG Nonreactive (Nonreactive); HIV Num 1 0.06 S/CO (0.00-0.99); Hepatitis B Core Antibody Nonreactive (Nonreactive); Hepatitis B Surface Antigen Negative (Negative); ~HepC Num1 0.13 S/CO (0.00-0.79); ~Hepatitis C Antibody Nonreactive (Nonreactive)
[2024-05-17 00:28] LABS: TS Negative Control Passed; TS Panel A 0; TS Panel B 0; TS Positive Control Passed; TSpotTB Negative (Negative)
[2024-05-21 04:44] LABS: Hepatitis A Antibody IgG Nonreactive (Nonreactive); ~Hepatitis A Antibody IgG 0.74 S/CO (0.00-0.99)
== END 2024-05-14 13:51 | disposition home or self-care (01) ==
LOC: HO.LAB 13:50
PROVIDERS: Visit Provider Internal Medicine
DX: F11.90 Opioid use, unspecified, uncomplicated (principal); F32.A Depression, unspecified; E78.00 Pure hypercholesterolemia, unspecified; I10 Essential (primary) hypertension
CPT/HCPCS: 36415; 80048; 80076; 85025; 86317; 86481; 86704; 86708; 86780; 86803; 87340; 87389; 99202

== ENCOUNTER 2024-05-14 13:50 | Outpatient (AMB) | payer MEDICARE, BC, SELFPAY ==
--- NOTE | 2024-05-05 16:13 | MHC.AM.SUB ---
Vital Signs 05/14/24 14:37 Height 5 ft 10 in Weight 240 lb BMI 34.4 Pulse 93 Pulse Source Pulse Oximeter Pulse Oximetry (%) 97 Oxygen Delivery Method Room Air Intake Visit Reasons: MAT INTAKE Allergies cephalexin [From Keflex] Allergy (Unknown, Verified 05/14/24 14:39) Unknown Penicillins Allergy (Unknown, Verified 05/14/24 14:39) Unknown HPI HPI MAT INTAKE: Details: He is here for OUD program initiation. He is using Suboxone 12/3 one SL daily he buys on street. He took today. He also took 1 mg Lorazepam prescribed to mother for anxiety driving here from [place]. He is on Social Security. He is His PCP is Triny MATTA at [facility] [address] Bev [place]. He saw within year. Details He has taken 12/3 Suboxone daily for last 5-6 years? heard about in [place] and buys about 200 dollars a raj He was prescribed Methadone 80 mg daily for spinal stenosis at [facility]. He has never used heroin. SA history Tobacco and alcohol quit 20 years ago denies domestic violence support system and mother 3 adult children denies IVDA prior suboxone methadone oxy cocaine benzos alcohol amphetamine marijuana tobacco no OD no needles detox attends AA recovery,peer support no behavioral health providers gambling history as well no psych hospitalizationa no self harm or homicidal thoughts. no incarceration,no parole,no court cases,no DCF involvement was in [place] Review of Systems Const All systems reviewed & are unremarkable except as noted in HPI and below Physical Exam Vital Signs: Last Vital Signs Pulse 93 05/14/24 14:37 Pulse Ox 97 05/14/24 14:37 Oxygen Delivery Method Room Air 05/14/24 14:37 BMI result Body Mass Index 34.4 Const General: cooperative Orientation/consciousness: patient oriented x3 HEENT Head: Yes normal to inspection Mouth: Normal oral and palatal mucosa present Eyes General: appearance normal, both eyes and all related structures Pupils: Equal, round and reactive pupils present Resp Effort & Inspection: normal respiratory effort Cardio Rate: regular rate Rhythm: regular rhythm GI Palpation (GI): Soft to palpation and nontender General: Yes no CVA tenderness Back/Spine/Pelvis Back: no CVA tenderness Skin General skin exam: no rashes or lesions noted Neuro General: patient oriented x3 Cranial nerves: Yes CN's II-XII intact bilaterally and Yes Equal, round and reactive pupils present Extrem General: Yes normal to inspection Psych Appearance: grossly normal [facility] Medical History (Updated 05/14/24 @ 15:39 by Cinthia Schrader MD) Dislocation of elbow, anterior, left, open Depression Hypercholesterolemia Hypertension Opioid use disorder Assessment & Plan Assessment & Plan (1) Opioid use disorder: Comment: He is transitioning to suboxone in this clinic rather than buying on street. Code(s): F11.90 - Opioid use, unspecified, uncomplicated Category: Medical Plan: Suboxone and see in two months Labs Therapy if needed. (2) Depression: Code(s): F32.A - Depression, unspecified Category: Medical Plan: na (3) Hypercholesterolemia: Code(s): E78.00 - Pure hypercholesterolemia, unspecified Category: Medical Plan: na (4) Hypertension: Code(s): I10 - Essential (primary) hypertension Category: Medical Plan: na Orders: Orders Complete Blood Count Auto Diff Today - Opioid use, unspecified, uncomplicated Liver Panel Today - Opioid use, unspecified, uncomplicated Hepatitis A IgG Today - Opioid use, unspecified, uncomplicated Hepatitis C Antibody Reflex Today - Opioid use, unspecified, uncomplicated Basic Metabolic Panel Today - Opioid use, unspecified, uncomplicated Hepatitis B Surface Ab Qnt Today - Opioid use, unspecified, uncomplicated Hepatitis B Surface Antigen Today - Opioid use, unspecified, uncomplicated Hepatitis B Core Antibody Today - Opioid use, unspecified, uncomplicated HIV Ab/Ag Today - Opioid use, unspecified, uncomplicated T Spot TB Today - Opioid use, unspecified, uncomplicated Syphilis Screen Today - Opioid use, unspecified, uncomplicated Medications: New buprenorphine-naloxone 8-2 mg (Suboxone) 2 film buccal Q24H 30 ea 1RF 30 days
[2024-05-14 14:37] VITALS: PULSE 93; O2SAT 97; BMI 34.4
--- OUTSIDE RECORDS SUMMARY | 2024-05-14 16:34 | XMS_ITS | Encounter Summary ---
Author Organization [facility] Address [address] [place] [address] Care Team Providers Care Timber Trimmer Name Role Phone Adam Rossi MD Primary Care Provider [phone] Kathleen Ball DNP Unavailable [phone] Martha Crump SHOE REPAIR COBBLER BC Unavailable Unavail able Ewa Nino MD Primary Care Provider [phone] Encounter Details Date Type Department Care Team (Late st Contact Info) Description 01/14/2010 Orders Only [facility] [address] [place] [address] Kathleen Ball, DNP [address] [place] [address] Social History Tobacco Use Types Packs/Day Years Used Date Smoking Tobacco: Passive Smo ke Exposure - Never Smoker Cigarettes Smokeless Tobacco: Current Snuff Comments:3 CIG WEEKLY Alcohol Use Standard Drinks/Week Comments No 0 (1 standard drink = 0.6 oz pur e alcohol) Sex and Gender Information Value Date Recorded Sex Assigned at Not on file Legal Sex Male 10:05 PM EDT Gender Identity Not on file Sexual Orientation Not on file 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 Not on file Not on file documented as of this encounter Plan of Treatment Not on file documented as of this encounter Visit Diagnoses Diagnosis Special screening for malignant neoplasms, colon Screening for prostate cancer Special screening for malignant neoplasm of prostate documented in this encounter Care Teams Timber Trimmer Relationship Specialty Start Date End Date Adam Rossi MD [address] [place] [address] PCP - General 08/10/09 03/19/14 Kathleen Ball DNP [address] [place] [address] PCP - Backup PCP 11/11/07 05/18/11 Martha Crump APRN [address] [place] [address] PCP - Backup PCP Internal Medicine 05/19/11 04/20/14 Ewa Nino MD [address] [place] [address] PCP - General Family Medicine 03/20/14 documented as of this encounter
--- OUTSIDE RECORDS SUMMARY | 2024-05-14 16:34 | XMS_ITS | Encounter Summary ---
Author Organization [facility] Address [address] [place] [address] Care Team Providers Care Manager Transfer Name Role Phone Ewa Nino MD Primary Care Provider [phone] Encounter Details Date Type Department Care Team (Late st Contact Info) Description 11/17/2015 Orders Only [facility] [address] [place] [phone] Reggie Moses DPM [address] [place] [id number] Social History Tobacco Use Types Packs/Day Years Used Date Smoking Tobacco: Former Cigarettes 1 03/04/1992 - 01/02/2013 Smokeless Tobacco: Former Snuff Comments:3 CIG WEEKLY Alcohol Use Standard Drinks/Week Comments No 0 (1 standard drink = 0.6 oz pur e alcohol) Sex and Gender Information Value Date Recorded Sex Assigned at Not on file Legal Sex Male 10:05 PM EDT Gender Identity Not on file Sexual Orientation Not on file 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 Author Blood Pressure < 140/90 Blood Pressure 145/85( 014 12:55 PM EST) No Kayla Winter CMA documented as of this encounter Results * Due to [place] state law, this organization might not be sharing negative HIV tests. * XRAY FOOT COMPLETE MIN 3 VWS - RIGHT FC (12/28/2015 9:03 AM EST) Anatomical Region Laterality Modality LOWER EXTREMITY Radiographic Vanessa ging 12/30/2015 10:5 2 AM EST Narrative 12/30/2015 10:52 AM EST EXAM: 3 views of the right foot. TECHNIQUE: 3 views of the right foot. COMPARISON: None FINDINGS: Mild pes planus. ??Small plantar and posterior calcaneal enthesophytes. 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 ??No fractures. ??No joint dislocation. ??Soft tissues appear normal. IMPRESSION: 1. ??Small calcaneal enthesophytes. 2. ??Mild pes planus. 3. 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 Procedure Note Frandy Chance MD - 12/30/2015 EXAM: 3 views of the right foot. TECHNIQUE: 3 views of the right foot. COMPARISON: None FINDINGS: Mild pes planus. Small plantar and posterior calcaneal enthesophytes.Severe 1st MTP joint degenerative disease. No fractures. No joint dislocation.Soft tissues appear normal. IMPRESSION: 1. Small calcaneal enthesophytes. 2. Mild pes planus. 3. 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 Reggie Moses DPM IMG XRAY NO CONTRAST ORDER MARY LOU Final Result documented in this encounter Visit Diagnoses Diagnosis Right foot pain- Primary Pain in limb Right foot pain Pain in limb documented in this encounter Care Teams Manager Transfer Relationship Specialty Start Date End Date Ewa Nino MD PCP - General Family Medicine 03/20/14 documented as of this encounter
--- OUTSIDE RECORDS SUMMARY | 2024-05-14 16:34 | XMS_ITS | Encounter Summary ---
Author Organization [facility] Address [address] [place] [address] Care Team Providers Care Supervisor Statement Clerks Name Role Phone Adam Rossi MD Primary Care Provider [phone] Jack Adkins MD Primary Care Provider [phone] Stephen Martins MD Primary Care Provider [phone] Fabian Correa MD Primary Care Provider [phone] Kathleen Ball DNP Unavailable [phone] Martha Crump HEALTH TECHNICIAN HEARING BC Unavailable Unavail able Ewa Nino MD Primary Care Provider [phone] Encounter Details Date Type Department Care Team (Late st Contact Info) Description 07/25/2006 Orders Only [facility] General Vascular Surgery [address] [facility] [address] [place] [address] Geraldo Souza MD Medications Social History Tobacco Use Types Packs/Day Years Used Date Smoking Tobacco: Never Assessed Cigarettes Smokeless Tobacco: Current Snuff Alcohol Use Standard Drinks/Week Comments No 0 (1 standard drink = 0.6 oz pur e alcohol) Sex and Gender Information Value Date Recorded Sex Assigned at Not on file Legal Sex Male 10:05 PM EDT Gender Identity Not on file Sexual Orientation Not on file 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 Not on file Not on file documented as of this encounter Plan of Treatment Not on file documented as of this encounter Visit Diagnoses Not on filedocumented in this encounter Care Teams Supervisor Statement Clerks Relationship Specialty Start Date End Date Adam Rossi MD [address] [place] [address] PCP - General 08/10/09 03/19/14 Jack Adkins MD [address] [place] [address] PCP - General 11/17/08 08/09/09 Stephen Martins MD [address] [place] [address] PCP - General 11/11/07 11/16/08 Fabian Correa MD [address] [place] [address] PCP - General 06/22/06 11/10/07 Kathleen Ball, DNP [address] [place] [address] PCP - Backup PCP 11/11/07 05/18/11 Martha Crump, HEALTH TECHNICIAN HEARING [address] [place] [address] PCP - Backup PCP Internal Medicine 05/19/11 04/20/14 Ewa Nino MD [address] [place] [address] PCP - General Family Medicine 03/20/14 documented as of this encounter
--- OUTSIDE RECORDS SUMMARY | 2024-05-14 16:34 | XMS_ITS | Encounter Summary ---
Author Organization [facility] Address [address] [place] [address] Care Team Providers Care Risk Professional Name Role Phone Adam Rossi MD Primary Care Provider [phone] Martha Crump APRN Unavailable Unavail able Ewa Nino MD Primary Care Provider [phone] Encounter Details Date Type Department Care Team (Late st Contact Info) Description 01/16/2013 Orders Only [facility] [address] [place] [address] Martha Crump, 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 Since he cannot tolerate statin medications I do recommend he start on Welchol (ordered) to see if we can improve his numbers. These medications help to bind the cholesterol so it passes out with stool. Sometimes can cause some belly cramping or constipation but we can adjust the dose. He should also be sure to take ASA 81 mg daily as a mild blood thinner to decrease risk of heart attack or stroke. Additionally AIC is elevated indicating that he has potential to become diabetic. Advise Tighten up on diet and exercise. Decrease fats, fried foods and red meats. Increase fiber, such as whole grains brown rice oatmeal, cereals. Cut back on sweets, bakery goods and alchohol. Include monounsaturated fats such as olive oil, canola oil, avocado, small amounts of nuts and small amounts of dark chocolate.Increase aerobic exercise such as walking briskly, bicycling, working out at the gym, swimming to 30-45 minutes daily minimum. Recheck FLP and AIC in 3 months fasting.(ordered) Martha Sylvester ANALYTICAL TECHNICIAN documented in this encounter Plan of Treatment Not on file documented as of this encounter Procedures * Due to [place] [employer] law, this organization might not be sharing negative HIV tests. Procedure Name Priority Date/Time Associated Diagnosis Comments HEMOGLOBIN A1C Routine 01/16/2013 7:04 AM EST Hyperlipidemia HEPATIC FUNCTION PANEL (ALT,AST,ALK PH,BILI'S,TP,ALB) Routine 01/16/2013 7:04 AM EST Hyperlipidemia LIPID PANEL WITH REFLEX TO DIRECT LDL Routine 01/16/2013 7:04 AM EST Hyperlipidemia BASIC METABOLIC PANEL WITH (GFR) Routine 01/16/2013 7:04 AM EST Hypertension goal BP (blood pressure) < 130/80 documented in this encounter Results * Due to [employer] law, this organization might not be sharing negative HIV tests. * HEPATIC FUNCTION PANEL (01/16/2013 7:04 AM EST) Protein Total (Serum) 6.8 6.1 - 8.1 g/dL [facility] Comment:{PROTEIN, TOTAL {[id number]) Albumin 4.5 3.6 - 5.1 g/dL [facility] Comment:{ALBUMIN {[id number]) Globulin 2.3 1.9 - 3.7 g/dL (calc) [facility] Comment:{GLOBULIN {[id number]) Albumin/Globulin 2.0 1.0 - 2.5 (calc) [facility] Comment:{ALBUMIN/GLOBULIN RA FABIOLA {[id number]) Bilirubin Total 1.0 0.2 - 1.2 mg/dL [facility] Comment:{BILIRUBIN, TOTAL {[id number]) Bilirubin Direct 0.2 < OR = 0.2 mg/dL [facility] Comment:{BILIRUBIN, DIRECT { [id number]) Bilirubin Indirect 0.8 0.2 - 1.2 mg/dL (calc) [facility] Comment:{BILIRUBIN, INDIRECT {[id number]) Alkaline phosphatase 47 40 - 115 U/L [facility] Comment:{ALKALINE PHOSPHATAS E {[id number]) AST (SGOT) 30 10 - 35 U/L [facility] Comment:{AST {[id number]) ALT (SGPT) 38 9 - 46 U/L [facility] Comment:{ALT {[id number]) 01/16/2013 7:04 AM EST 01/16/2013 6:28 PM EST Narrative Resulting Agency Comment [id number] Martha Crump APRN LABORATORY Final Re sult [facility] [address] [place] [address] * (ABNORMAL) BASIC METABOLIC PANEL WITH (GFR) (01/16/2013 7:04 AM EST) Glucose 106(H) 65 - 99 mg/dL [facility] Comment: {GLUCOSE {[id number]) ? Fasting reference interval Urea Nitrogen Blood (BUN) 21 7 - 25 mg/dL [facility] Comment:{UREA NITROGEN (BUN) {[id number]) Creatinine 0.82 0.70 - 1.33 mg/dL [facility] Comment: {CREATININE {[id number]) For patients >49 years of age, the reference limit for Creatinine is approximately 13% higher for people identified as -Irish. GFR 100 > OR = 60 mL/min/1 .73m2 [facility] Comment:{eGFR NON-AFR. AMERI CAN {[id number]) GFR () 115 > OR = 60 mL/min/1 .73m2 [facility] Comment:{eGFR AMERIC AN {[id number]) BUN/Creatinine Ratio NOT APPLICABLE 6 - (calc) [facility] Comment:{BUN/CREATININE RATI O {[id number]) Sodium 138 135 - 146 mmol/L [facility] Comment:{SODIUM {[id number]) Potassium 4.4 3.5 - 5.3 mmol/L [facility] Comment:{POTASSIUM {[id number]) Chloride 103 98 - 110 mmol/L [facility] Comment:{CHLORIDE {[id number]) Carbon dioxide 25 19 - 30 mmol/L [facility] Comment:{CARBON DIOXIDE {[id number]) Calcium 9.5 8.6 - 10.3 mg/dL [facility] Comment:{CALCIUM {[id number]) 01/16/2013 7:04 AM EST 01/16/2013 6:28 PM EST Narrative [facility] - 01/16/2013 9:38 PM EST Please note that this estimated GFR does not include an adjustment for the patient's height or weight, and can therefore, be viewed as reliable only for patients with heights between 60 and 72 . More precise quantification using a 24-hour urine sample or height-based algorithm is recommended for patients outside of this range of height and for those individuals with more precise needs for GFR calculation. Resulting Agency Comment [id number] us Martha Crump APRN BC LABORATORY Final Re sult [facility] [address] [place] [address] * (ABNORMAL) LIPID PANEL WITH REFLEX TO DIRECT LDL (01/16/2013 7:04 AM EST) Cholesterol 226(H) 125 - 200 mg/dL [facility] Comment:{CHOLESTEROL, TOTAL {[id number]) HDL Cholesterol 52 > OR = 40 mg/dL [facility] Comment:{HDL CHOLESTEROL {[id number]) Triglyceride 72 <150 mg/dL [facility] Comment:{TRIGLYCERIDES {[id number]) LDL Cholesterol 160(H) <130 mg/dL (calc) [facility] Comment: {LDL-CHOLESTEROL {[id number]) Desirable range <100 mg/dL for patients with CHD or diabetes and <70 mg/dL for diabetic patients with known heart disease. CHOL/HDL Ratio 4.3 < OR = 5.0 (calc) [facility] Comment:{CHOL/HDLC RATIO {[id number]) Cholesterol Non-HDL 174(H) mg/dL (calc) [facility] Comment: {NON HDL CHOLESTEROL {[id number]) Target for non-HDL cholesterol is 30 mg/dL higher than LDL cholesterol target. 01/16/2013 7:04 AM EST 01/16/2013 6:28 PM EST Narrative Resulting Agency Comment [id number] Martha Crump APRN LABORATORY Final Re sult Performing Organization Address City/State/[facility] Co de Phone Number [facility] [address] [place] [address] * (ABNORMAL) HEMOGLOBIN A1C (01/16/2013 7:04 AM EST) Hemoglobin A1C 5.9(H) <5.7 % of total Hgb [facility] Comment: {HEMOGLOBIN A1c {[id number]) According to ADA guidelines, hemoglobin A1c <7.0% represents optimal control in non- diabetic patients. Different metrics may apply to specific patient populations. Standards of Medical Care in Diabetes-2013. Diabetes Care. 2013;36:s11-s66 For the purpose of screening for the presence of diabetes <5.7% ? Consistent with the absence of diabetes 5.7-6.4% ?Consistent with increased risk for diabetes ?(prediabetes) >or=6.5% ?Consistent with diabetes This assay result is consistent with an increased risk of diabetes. Currently, no consensus exists for use of hemoglobin A1c for diagnosis of diabetes for children. Estimated Average Glucose 133 mg/dL (calc) [facility] Comment:{MEAN PLASMA GLUCOSE {[id number]) 01/16/2013 7:04 AM EST 01/16/2013 6:28 PM EST Narrative Resulting Agency Comment [id number] Martha Crump HIGH SCHOOL COUNSELOR LABORATORY Final Re sult [facility] [address] [place] [address] documented in this encounter Visit Diagnoses Diagnosis Hyperlipidemia- Primary Other and unspecified hyperlipidemia Hypertension goal BP (blood pressure) < 130/80 Unspecified essential hypertension Elevated glycohemoglobin Other abnormal blood chemistry documented in this encounter Care Teams Risk Professional Relationship Specialty Start Date End Date Adam Rossi MD [address] [place] [address] PCP - General 08/10/09 03/19/14 Martha Crump, BO [address] [place] [address] PCP - Backup PCP Internal Medicine 05/19/11 04/20/14 Ewa Nino MD [address] [place] [address] PCP - General Family Medicine 03/20/14 documented as of this encounter
--- OUTSIDE RECORDS SUMMARY | 2024-05-14 16:34 | XMS_ITS | Encounter Summary ---
Author Organization [facility] Address [address] [place] [address] Care Team Providers Care Spring Crater Name Role Phone Adam Rossi MD Primary Care Provider [phone] Martha Crump APRN Unavailable Unavail able Ewa Nino MD Primary Care Provider [phone] Reason for Referral * OUTPT PROCEDURES AND DIAGNOSTICS (Routine) - ZZ Not Required Specialty Diagnoses / Procedures Referred By Contyeyo t Referred To Contact Diagnoses Snoring Procedures REQUEST FOR SLEEP STUDY NON-FC Pepe Kincaid MD [address] [place] [address] Phone: tel: fax: [facility] [address] [place] [address] Referral ID Status Reason Start Date Expiration Date Visits Requested Visits Authorized [id number] ZZ Not Required Specialty Services Required 03/14/2013 1 1 Encounter Details Date Type Department Care Team (Late st Contact Info) Description 03/14/2013 Orders Only [facility] Pulmonary [address] [facility] [address] [place] [address] Pepe Kincaid MD [address] [place] [address] Social History Tobacco Use Types Packs/Day Years [...] 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 on file Not on file documented as of this encounter Plan of Treatment Scheduled Orders Name Type Priority Associated Diagnoses Orde r Schedule REQUEST FOR SLEEP STUDY NON-FC Procedures Routine Snoring Ordered: 03/14/2013 documented as of this encounter Visit Diagnoses Diagnosis Snoring- Primary Other dyspnea and respiratory abnormality documented in this encounter Care Teams Spring Crater Relationship Specialty Start Date End Date Adam Rossi MD [address] [place] [address] PCP - General 08/10/09 03/19/14 Martha Crump APRN [address] [place] [address] PCP - Backup PCP Internal Medicine 05/19/11 04/20/14 Ewa Nino MD [address] [place] [address] PCP - General Family Medicine 03/20/14 documented as of this encounter
--- OUTSIDE RECORDS SUMMARY | 2024-05-14 16:34 | XMS_ITS | Encounter Summary ---
Author Organization [facility] Address [address] [place] [address] Care Team Providers Care Veterinary Technician Name Role Phone Adam Rossi MD Primary Care Provider [phone] Jack Adkins MD Primary Care Provider [phone] Stephen Martins MD Primary Care Provider [phone] Fabian Correa MD Primary Care Provider [phone] Kathleen Ball DNP Unavailable [phone] Martha Crump BUS SYSTEM OPERATOR BC Unavailable Unavail able Ewa Nino MD Primary Care Provider [phone] Encounter Details Date Type Department Care Team (Late st Contact Info) Description 07/19/2006 Orders Only [facility] Otolaryngology [address] [facility] [address] [place] [address] Vicenta Pinto, [facility] [address] [place] [address] Social History Tobacco Use Types Packs/Day Years [...] 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 on file Not on file documented as of this encounter Plan of Treatment Not on file documented as of this encounter Visit Diagnoses Not on filedocumented in this encounter Care Teams Veterinary Technician Relationship Specialty Start Date End Date Adam Rossi MD [address] [place] [address] PCP - General 08/10/09 03/19/14 Jack Adkins MD [address] [place] [address] PCP - General 11/17/08 08/09/09 Stephen Martins MD [address] [place] [address] PCP - General 11/11/07 11/16/08 Fabian Correa MD [address] [place] [address] PCP - General 06/22/06 11/10/07 Kathleen Ball, ARIEL [address] [place] [address] PCP - Backup PCP 11/11/07 05/18/11 Martha Crump, [facility] [address] [place] [address] PCP - Backup PCP Internal Medicine 05/19/11 04/20/14 Ewa Nino MD [address] [place] [address] PCP - General Family Medicine 03/20/14 documented as of this encounter
--- OUTSIDE RECORDS SUMMARY | 2024-05-14 16:34 | XMS_ITS | Clinical Summary ---
Author Organization [facility] Address [address] [place] [address] Care Team Providers Care Hose Seamer Name Role Phone Ewa Nino MD Primary Care Provider [phone] Allergies Active Allergy Reactions Criticality Noted Date Comments Cephalexin Monohydrate Maculopapular Diego h,Urticarial Rash,Anaphylaxis 01/08/1999 Penicillin V Potassium Anaphylaxis 01/17/1999 Medications * This document contains information received from the source organization and may not represent a complete record from that organization. ACYCLOVIR 400 MG OR TABS 1 tab po daily 30 2 11/11/2007 Active IBUPROFEN 800 MG OR TABS 1 TABLET THREE TIMES A DAY NEEDED 90 2 11/25/2007 Active AMITRIPTYLINE HCL 100 MG OR TABSIndications :Hyperlipidemia ,Obesity,Chroni c back pain,Screening for condition 1 TABLET AT BEDTIME 30 Tab 0 11/29/2009 Active Fexofenadine HCl (DELILAH) 60 MG Tab 1 TABLET TWICE DAILY NEEDED Active Buprenorphine HCl-Naloxone HCl (SUBOXONE) 8-2 MG FILM 1 and 1/2 FILM DAILY Active AmLODIPine Besylate 10 MG Tab 1 TABLET DAILY Active Fluoxetine HCl (PROZAC) 10 MG Cap 3 caps qd. Active Naproxen 500 MG Tab 1 TABLET TWICE DAILY with food 60 Tab 0 01/11/2016 Active Active Problems Problem Noted Date Diagnosed Date Elevated glycohemoglobin 01/17/2013 Sleep apnea 01/07/2013 Overview (01/22/2013): Hx same not treated. 01/07/2013 counseled that this affects all areas of health, blood pressure, heart, ability to lose weight, energy etc, consult done. Dependency on pain medication HX 01/07/2013 Overview (01/07/2013): On Suboxone therapy with Dr Kelsey. Arthritis 05/19/2011 Overview (05/19/2011): Chronic back, joint pain. Recommend chiropractor. Hypertension goal BP (blood pressure) < 130/80 0 05/19/2011 Overview (01/22/2013): Norvasc 10, HCTZ 12.5. Reinforced diet,exercise and weight reduction. 02/15/2012 158/80, 162/80 increase HCTZ mg, try to do some outside checks. Goals discussed. Discussed will likely need a 3rd agent but lets see. DASH type diet. 01/07/2013 improved HCTZ 23, norvasc 10, DASH diet, exercise, weight loss, follow Varicose veins of lower extremity 05/19/2011 Overview (06/13/2013): Stable at present. Painful at times. , Left foot pain 05/19/2011 Overview (02/21/2012): Chronic. Informed likely arthritis. Pt. declined xray. 02/15/2012 Aching pain, anterior ankle, bothering walking, xray and refer to podiatry. 02/15/2012 Mood Disorder (F39) 01/13/2010 Overview (01/22/2013): Improved on Prozac. Celexa caused sexual side effects. 02/15/2012 stable on current meds fluoxetine 30 mg. 02/15/2012 01/07/2013 feels doing well on current dose without SE, did try going down to 20 mg for about a month and became depressed so went back to the 30 mg and feels well controlled on this dose, not currently seeing a therapist. Genital herpes 01/13/2010 Overview (05/19/2011): Stable uses Acyclovir prn Seasonal allergies 01/13/2010 Overview (05/19/2011): 05/19/11 Takes Delilah May thru July Insomnia 01/13/2010 Overview (05/19/2011): 05/19/11 Amitriptyline works well. Hyperlipidemia 08/10/2009 Overview (01/22/2013): He has a history of hyperlipidemia, but has done very poorly with statins in the past. He had either GI symptoms or his liver enzymes become elevated and in the view of his h/o hyper-CKemia (elevated CK enzyme), it probably would be not a good choice. He has tried multiple statins in the past including Lipitor, Crestor, Zocor, etc. Recheck lipid profile 02/15/2012 Lesion of liver 09/22/2008 Overview (02/21/2012): Pt. Had MRIlumbar spine on 08/29/08 which showed lesion on liver. He had MRI of abdomen performed on 09/08 which showed probable hemangioma. Recommend repeat MRI in 6 months. Due 03/11/2009 Pt. Never had repeat MRI done. 05/29/11 order placed for f/u MRI for liver lesion. Pt.was made aware. Reviewed result and read as stable, no recommendation for further testing. 02/15/2012 Obesity (BMI 30-39.9) 07/03/2006 Overview (01/22/2013): Encouraged diet exercise, weight reduction.to help with all health risks. Snuff user/cigarettes too. 07/03/2006 Overview (01/22/2013): Sleeps with this in his mouth, counseled, used to smoke cigarettes too but quit completely yesterday. Oral check: 4 time s a year remove dentures, clean your mouth and inspect with a flashlight for any white or discolored areas on the mucous membranes which should look uniformly pink and moist. Backache 07/03/2006 Overview (06/19/2014): Chronic. Mid to upper back. He denies low back pain. 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 on file Not on file Last Filed Vital Signs Vital Sign Reading Time Taken Comments Blood Pressure 145/85 03/14/2013 12:55 PM EST le ft large Pulse 78 03/14/2013 12:55 PM EST Temperature 36.8 ??C (98.3 ??F) 07/29/2008 2:01 PM ED T Respiratory Rate 12 04/11/2007 2:23 PM EST Oxygen Saturation 97% 03/14/2013 12:55 PM EST on room ai Inhaled Oxygen Concentration - - Weight 108 kg (238 lb) 03/14/2013 12:55 PM EST w ith shoes Height 175.3 cm (5' 9 ) 03/14/2013 12:55 PM EST Body Mass Index 35.15 03/14/2013 12:55 PM EST Plan of Treatment Health Maintenance Due Date Last Done Comments Zoster (Shingrix) (1 of 2) 10/23/2007 Pneumococcal 50+ years (2 of 2 - PCV) 01/07/2014 01/07/2013 DTaP/Tdap/Td (2 - Td or Tdap) 07/03/2016, 11/30/1994 Abdominal Aorta Imaging 2022 09/09/19 09, 09/02/2008, 09/02/2008 COVID-19 Vaccine ( - 2023-2 5 season) 2023 Influenza (#1) 2023 RSV (1 - 1-dose 75+ series) 2032 Hepatitis C Screening Completed 05/25/2011 , 04/10/2000 HPV Vaccine Aged Out No longer eligi ble based on patient's age to complete this topic Hep A Aged Out No longer eligi ble based on patient's age to complete this topic Hep B Aged Out No longer eligi ble based on patient's age to complete this topic Hib Aged Out No longer eligi ble based on patient's age to complete this topic Meningococcal ACWY Aged Out No longer eligible based on patient's age to complete this topic Zoster (Zostavax) Discontinued Goals Goal Patient Goal Type Associated Problems Recent Progress Patient-Stated? Author Blood Pressure < 140/90 Blood Pressure 145/85( 014 12:55 PM EST) No Kayla Winter CMA Procedures * Due to [place] law, this organization might not be sharing negative HIV tests. Procedure Name Priority Date/Time Associated Diagnosis Comments HEPATITIS C AB WITH REFLEX TO RNA PCR, SERUM Routine 05/25/2011 11:47 AM EDT LFT elevation Obesity MRI ABDOMEN W/O CONTRAST MATERIAL(S) FOLLOWED BY CONTRAST MATERIAL(S) AND Routine 09/08/2008 9:45 AM EDT from Last 3 Months or Most Recently Relevant to Health Maintenance Results * Due to [place] law, this organization might not be sharing negative HIV tests. * HEPATITIS C ANTIBODY, SERUM (05/25/2011 11:47 AM EDT) Hepatitis C virus Ab NON-REACTI VE NON-REACT [facility] Comment:{HEPATITIS C ANTIBOD Y {[id number]) Hepatitis C virus Ab Signal/Cutoff 0.07 <1.00 [facility] Comment:{SIGNAL TO CUT-OFF { [id number]) 05/25/2011 11:4 7 AM EDT 05/25/2011 6:28 PM EDT Narrative Resulting Agency Comment [id number] Kathleen Ball DNP LABORATORY Final Result [facility] [address] [place] [address] * MRI ABDOMEN W/O CONTRAST MATERIAL(S) FOLLOWED BY CONTRAST MATERIAL(S) AND (09/08/2008 9:45 AM EDT) RADIOLOGY REPORT Technique: Multiplanar imaging was performed through the liver using routine protocol. 20 cc of intravenous gadolinium was administered for the exam a portion of the study. Findings: There is a 1 cm subcapsular lesion in the posterior segment of the right lobe of the liver. This demonstrates early peripheral nodular enhancement which fills in on delayed imaging. Findings are suggestive of a hemangioma however, the lesion is too small for accurate characterization . For this reason, 6 month followup is advised to assure stability. The spleen is normal in size and without focal abnormality. The kidneys excrete contrast bilaterally; there is no hydronephrosis. The aorta maintains a normal caliber. The adrenal glands are normal Impression: Nonspecific lesion in the right lobe of the liver, possibly a small hemangioma. Six month followup is advised to assure stability. Anatomical Region Laterality Modality Other 09/08/2008 9:45 AM EDT Narrative 09/10/2008 10:34 AM EDT Reason for Study/History: POSSIBLE LIVER CYST TEST(S) PROCESSED BY [facility] AT [facility] Kathleen Ball DNP CONTRAST STUDY- OTHER Final Result from Last 3 Months or Most Recently Relevant to Health Maintenance Insurance [facility] FFS FEDERAL Care Teams Hose Seamer Relationship Specialty Start Date End Date Ewa Nino MD PCP - General Family Medicine 03/20/14
--- OUTSIDE RECORDS SUMMARY | 2024-05-14 16:34 | XMS_ITS | Encounter Summary ---
Author Organization [facility] Address [address] [place] [address] Care Team Providers Care Associate Name Role Phone Adam Rossi MD Primary Care Provider [phone] Kathleen Ball DNP Unavailable [phone] Martha Crump AVIATION METALSMITH BC Unavailable Unavail able Ewa Nino MD Primary Care Provider [phone] Encounter Details Date Type Department Care Team (Late st Contact Info) Description 08/03/2010 Orders Only [facility] [address] [place] [address] Kathleen Ball, DNP [address] [place] [address] Social History Tobacco Use Types Packs/Day Years [...] 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 Procedure Name Priority Date/Time Associated Diagnosis Comments URIC ACID Routine 08/03/2010 Left foot pain documented in this encounter Results * Due to [place] state law, this organization might not be sharing negative HIV tests. * URIC ACID (08/03/2010) URIC ACID, SERUM 5.7 4.0 - 8.0 MG/DL [facility] 08/03/2010 08/03/2010 6:1 2 PM EDT Kathleen Ball DNP LABORATORY Final Result [facility] [address] [place] [address] documented in this encounter Visit Diagnoses Diagnosis Left foot pain Pain in limb documented in this encounter Care Teams Associate Relationship Specialty Start Date End Date Adam Rossi MD [address] [place] [address] PCP - General 08/10/09 03/19/14 Kathleen Ball DNP [address] [place] [address] PCP - Backup PCP 11/11/07 05/18/11 Martha Crump, BO [address] [place] [address] PCP - Backup PCP Internal Medicine 05/19/11 04/20/14 Ewa Nino MD [address] [place] [address] PCP - General Family Medicine 03/20/14 documented as of this encounter
--- OUTSIDE RECORDS SUMMARY | 2024-05-14 16:34 | XMS_ITS | Encounter Summary ---
Author Organization [facility] Address [address] [place] [address] Care Team Providers Care Glass Maker Name Role Phone Adam Rossi MD Primary Care Provider [phone] Jack Adkins MD Primary Care Provider [phone] Stephen Martins MD Primary Care Provider [phone] Fabian Correa MD Primary Care Provider [phone] Kathleen Ball DNP Unavailable [phone] Martha Crump TELEPHONE SEX WORKER BC Unavailable Unavail able Ewa Nino MD Primary Care Provider [phone] Encounter Details Date Type Department Care Team (Late st Contact Info) Description 07/19/2006 Orders Only [facility] Otolaryngology [address] [place] [address] [address] [place] [address] Alis Ortega, RN [address] [place] [address] Social History Tobacco Use Types Packs/Day Years [...] 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 Not on file Not on file documented as of this encounter Plan of Treatment Not on file documented as of this encounter Visit Diagnoses Not on filedocumented in this encounter Care Teams Glass Maker Relationship Specialty Start Date End Date Adam Rossi MD [address] [place] [address] PCP - General 08/10/09 03/19/14 Jack Adkins MD [address] [place] [address] PCP - General 11/17/08 08/09/09 Stephen Martins MD [address] [place] [address] PCP - General 11/11/07 11/16/08 Fabian Correa MD [address] [place] [address] PCP - General 06/22/06 11/10/07 Kathleen Ball, ARIEL [address] [place] [address] PCP - Backup PCP 11/11/07 05/18/11 Martha Crump, TELEPHONE SEX WORKER [address] [place] [address] PCP - Backup PCP Internal Medicine 05/19/11 04/20/14 Ewa Nino MD [address] [place] [address] PCP - General Family Medicine 03/20/14 documented as of this encounter
--- OUTSIDE RECORDS SUMMARY | 2024-05-14 16:34 | XMS_ITS | Encounter Summary ---
Author Organization [facility] Address [address] [place] [address] Care Team Providers Care Inspector Electromechanical Name Role Phone Adam Rossi MD Primary Care Provider [phone] Kathleen Ball DNP Unavailable [phone] Martha Crump PUNCHBOARD FILLING MACHINE OPERATOR BC Unavailable Unavail able Ewa Nino MD Primary Care Provider [phone] Encounter Details Date Type Department Care Team (Late st Contact Info) Description 01/14/2010 Orders Only [facility] [address] [place] [address] Adam Rossi MD [address] [place] [address] Social History Tobacco Use Types Packs/Day Years [...] 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 documented in this encounter Plan of Treatment Not on file documented as of this encounter Procedures * Due to [place] law, this organization might not be sharing negative HIV tests. Procedure Name Priority Date/Time Associated Diagnosis Comments BASIC METABOLIC PANEL W/GLOMERULAR FILTRATION RATE (EGFR) Routine 01/14/2010 Hyperlipidemia Obesity Chronic back pain Screening for condition LIPID PANEL + CARDIAC RISK WITH REFLEX TO LDL DIRECT Routine 01/14/2010 Hyperlipidemia Obesity Chronic back pain Screening for condition CBC 5 PART DIFF Routine 01/14/2010 Hyperlipidemia Obesity Chronic back pain Screening for condition ALANINE AMINOTRANSFERASE (ALT), SERUM Routine 01/14/2010 Hyperlipidemia Obesity Chronic back pain Screening for condition PSA (PROSTATE SPECIFIC AG) TOTAL DIAGNOSTIC OR FOLLOW-UP Routine 01/14/2010 documented in this encounter Results * Due to [place] law, this organization might not be sharing negative HIV tests. * PSA (PROSTATE SPECIFIC AG) TOTAL DIAGNOSTIC OR FOLLOW-UP (01/14/2010) PSA 0.5 0 - 4.0 NG/ML [facility] Comment: THIS TEST WAS PERFORMED USING THE [employer] ([employer]) CHEMILUMINESCENT METHOD. VALUES OBTAINED FROM DIFFERENT ASSAY METHODS CANNOT BE USED INTERCHANGEABLY. PSA LEVELS, REGARDLESS OF VALUE, SHOULD NOT BE INTERPRETED ABSOLUTE EVIDENCE OF THE PRESENCE OR ABSENCE OF DISEASE. 01/14/2010 01/14/2010 3:1 2 PM EST Adam Rossi MD LABORATORY Final Result Performing Organization Address City/State/[facility] Co de Phone Number [facility] [address] [place] [address] * (ABNORMAL) CBC 5 PART DIFF (01/14/2010) WHITE BLOOD COUNT 5.4 3.8 - 10.8 THOUS/UL [facility] RBC 4.72 4.20 - 5.80 MIL/UL [facility] Hemoglobin 14.1 13.2 - 17.1 G/DL [facility] HCT (HEMATOCRIT) 42.1 38.5 - 50.0 % [facility] MCV 89.1 80.0 - 100.0 FL [facility] MCH 30.0 27.0 - 33.0 PG [facility] MCHC 33.6 32.0 - 36.0 G/DL [facility] BAND % 0 0 - 5 % [facility] NEUTROPHIL % 52 48 - 75 % [facility] LYMPHOCYTE % 33 17 - 40 % [facility] MONOCYTE % 7 0 - 14 % [facility] EOSINOPHIL % 7(H) 0 - 5 % [facility] BASOPHIL % 1 0 - 3 % [facility] ATYPICAL LYMPHOCYTE % 0 0 - 5 % [facility] PLATELETS 224 140 - 400 THOUS/UL [facility] BANDS # 0 0 - 750 CELLS/MCL [facility] NEUTROPHILS # 2808 1500 - 7800 CELLS/MCL [facility] LYMPHOCYTES # 1782 850 - 3900 CELLS/MCL [facility] MONOCYTES # 378 200 - 950 CELLS/MCL [facility] EOSINOPHILS # 378 15 - 550 CELLS/MCL [facility] BASOPHILS # 54 0 - 200 CELLS/MCL [facility] ATYPICAL LYMPHOCYTES # 0 0 - 200 CELLS/MCL [facility] RDW 13.7 11.0 - 15.0 % [facility] MPV 9.1 7.5 - 11.5 FL [facility] 01/14/2010 01/14/2010 3:1 2 PM EST us Adam Rossi MD LAB SAME DAY RESULT Final Res ult [facility] [address] [place] [address] * (ABNORMAL) BASIC METABOLIC PANEL W/GLOMERULAR FILTRATION RATE (EGFR) (01/14/2010) CALCIUM 10.0 8.6 - 10.2 MG/DL [facility] BUN 19 7 - 25 MG/DL [facility] CREATININE 0.75(L) 0.76 - 1.46 MG/DL [facility] BUN/Creatinine Ratio 25 6 - 25 [facility] Glucose 93 65 - 99 MG/DL [facility] SODIUM 138 135 - 146 MMOL/L [facility] POTASSIUM 4.4 3.5 - 5.3 MMOL/L [facility] CHLORIDE 102 98 - 110 MMOL/L [facility] CARBON DIOXIDE 24 21 - 33 MMOL/L [facility] GFR > 60 60 AND ABOVE [facility] Comment:UNITS: ML/MIN/1.73 S Q METERS EGFR > 60 60 AND ABOVE [facility] Comment:UNITS: ML/MIN/1.73 S Q METERS 01/14/2010 01/14/2010 3:1 2 PM EST Narrative [facility] - 01/15/2010 3:16 AM EST Please note that this estimated GFR [...] with more precise needs for GFR calculation. Adam Rossi MD LABORATORY Final Result Performing Organization Address [facility] de Phone Number [facility] [address] [place] [address] * ALANINE AMINOTRANSFERASE (ALT), SERUM (01/14/2010) ALT (SGPT) 46 9 - 60 U/L [facility] 01/14/2010 01/14/2010 3:1 2 PM EST Adam oRssi MD LAB SAME DAY RESULT Final Res ult Performing Organization Address [facility] de Phone Number [facility] [address] [place] [address] * (ABNORMAL) LIPID PANEL + CARDIAC RISK WITH REFLEX TO LDL DIRECT (01/14/2010) CHOLESTEROL, TOTAL 229(H) 125 - 200 MG/DL [facility] TRIGLYCERIDES 93 30 - 149 MG/DL [facility] HDL-CHOLESTEROL 61 40 - 77 MG/DL [facility] LDL-CHOLESTEROL 149(H) 62 - 130 MG/DL [facility] Comment: RISK CATEGORY: ??LDL-CHOLESTEROL GOAL CHD AND CHD RISK EQUIVALENTS: ??<100 MULTIPLE (2+) FACTORS: ??<130 ZERO TO ONE RISK FACTOR: ??<160 CHD RELATIVE RISK RATIO (TOTAL/HDL) 3.75 0.0 - 5.0 [facility] Comment:(0.6 X AVERAGE) 01/14/2010 01/14/2010 3:1 2 PM EST Adam Rossi MD LABORATORY Final Result Performing Organization Address [facility] de Phone Number [facility] [address] [place] [address] documented in this encounter Visit Diagnoses Diagnosis Hyperlipidemia Other and unspecified hyperlipidemia Obesity Obesity, unspecified Chronic back pain Backache, unspecified Screening for condition Screening for unspecified condition documented in this encounter Care Teams Inspector Electromechanical Relationship Specialty Start Date End Date Adam Rossi MD [address] [place] [address] PCP - General 08/10/09 03/19/14 Kathleen Ball DNP [address] [place] [address] PCP - Backup PCP 11/11/07 05/18/11 Martha Crump, PUNCHBOARD FILLING MACHINE OPERATOR BC [address] [place] [address] PCP - Backup PCP Internal Medicine 05/19/11 04/20/14 Ewa Nino MD [address] [place] [address] PCP - General Family Medicine 03/20/14 documented as of this encounter
--- OUTSIDE RECORDS SUMMARY | 2024-05-14 16:34 | XMS_ITS | Encounter Summary ---
Author Organization [facility] Address [address] [place] [address] Care Team Providers Care Lead Level Designer Name Role Phone Adam Rossi MD Primary Care Provider [phone] Kathleen Ball DNP Unavailable [phone] Martha Crump SPIRAL TUBE WINDER HELPER BC Unavailable Unavail able Ewa Nino MD Primary Care Provider [phone] Encounter Details Date Type Department Care Team (Late st Contact Info) Description 01/14/2010 Orders Only [facility] [address] [place] [address] MD [address] [place], [place] [id number] Social History Tobacco Use Types Packs/Day Years [...] 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 Thanks. * Adam Rossi MD - 01/17/2010 10:54 AM Normaick Note: He is your patient * Art Way MD - 01/17/2010 10:35 AM ESTQuick Note: To Dr. Rossi I haven't seen this patient since 2006. I'm not sure who ordered this test at this time. I had thought the modest elevation in CK was of no clinical significance; if he's not weak, this result is consistent with this being of no significance. documented in this encounter Plan of Treatment Not on file documented as of this encounter Procedures * Due to [place] Compare And Share law, this organization might not be sharing negative HIV tests. Procedure Name Priority Date/Time Associated Diagnosis Comments CK, CREATINE KINASE (CPK, TOTAL) Routine 01/14/2010 OSTEOARTHRITIS documented in this encounter Results * Due to [place] Compare And Share law, this organization might not be sharing negative HIV tests. * (ABNORMAL) CK, CREATINE KINASE (CPK, TOTAL) (01/14/2010) CK (CREATINE KINASE) 308(H) 44 - 196 U/L [facility] 01/14/2010 01/14/2010 3:1 1 PM EST Narrative [facility] - 01/15/2010 3:16 AM EST Report Comments: ORIGINALLY EXPECTED: 12/17/06 CK, CREATINE KINASE (CPK, TOTAL) us Art Way MD LAB SAME DAY RESULT Final Resul t Performing Organization Address City/State/[facility] Co de Phone Number [facility] [address] [place] [address] documented in this encounter Visit Diagnoses Diagnosis OSTEOARTHRITIS Osteoarthrosis, unspecified whether generalized or localized, unspecified site documented in this encounter Care Teams Lead Level Designer Relationship Specialty Start Date End Date Adam Rossi MD [address] [place] [address] PCP - General 08/10/09 03/19/14 Kathleen Ball DNP [address] [place] [address] PCP - Backup PCP 11/11/07 05/18/11 Martha Crump, SPIRAL TUBE WINDER HELPER [address] [place] [address] PCP - Backup PCP Internal Medicine 05/19/11 04/20/14 Ewa Nino MD [address] [place] [address] PCP - General Family Medicine 03/20/14 documented as of this encounter
--- OUTSIDE RECORDS SUMMARY | 2024-05-14 16:34 | XMS_ITS | Patient Health Record ---
Author Organization [facility] Address [address] [place], [place] [id number] Care Team Providers Care Pharmacy Technician Trainee Name Role Phone Phu Lepe Primary Care Provider Unavailable Jose Brooke Unavailable [phone] Allergies Allergen (clinical drug ingredient) Drug/Non Drug Allergy documented on EMR Reaction Allergy Type Onset Date Status Keflex anaphylaxis Drug Allergy Activ e Penicillin anaphylaxis Drug Allergy Acti ve Reason For Referral No Information Medications Medication SIG (Take, Route, Frequency, Duration) Notes Start Date End Date Status CPAP* DX: LIZBETH G47.33 as directed SETTINGS:5-15cm/H2O SIG DATE: 04/17/2017 During sleep nightly for the treatment of sleep apnea for lifetime Secondary Dx: Hypersomnia G47.10 04/16/2017 Active APAP Machine- 5-15 cm H2O using FFM and heated humidification Nightly q hs 06/08/2017 Active Aspirin 81 MG 1 tablet Orally Once a day Active Lisinopril 10 MG Oral Act silviano CPAP PRESSURE CHANGE as directed ANTONIETA SETTIN-20 cm/h20 SIG DATE: 07/19/2017 DX: G47.33 During sleep at night for the treatment of sleep apnea for LIFETIME 07/19/2017 Active Pravastatin Sodium 20 MG Oral for 90 Active amLODIPine Besylate 10 MG Oral for 90 Active FLUoxetine HCl 40 MG Oral for 90 Active Naproxen 500 MG take 1 tablet by selene th every 12 hours if needed . TAKE WITH FOOD. Oral for 30 Active Suboxone 8-2 MG (Schedule III Drug) PLACE 1 1/2 FILMS UNDER THE TONGUE ONCE A DAY Sublingual for 28 Active Immunizations Vaccine Route Administration Date Status Comme nts Zz Flucelvax Quadrivelant 2017 Unknown 11/08/2016 Admin istered [facility] Problems Problem Type SNOMED Code ICD Code Onset Dates Problem Status W/U Status Risk Notes Problem Hypersomnia (35662876) Hypersomnia, unspecified (G47.10) Active confirmed Problem Hypertension (67295013) Hypertension (I10) Active confirmed Problem Obstructive sleep apnea (26774902) Obstructive sleep apnea (G47.33) Active confirmed Problem Obesity (429283616) Obesity (E66.9) Active confirmed Plan Of Treatment Pending Test Test Name Order Date Chest X-Ray PA and Lateral 02/26/2017 Sleep Home Sleep Testing 03/14/2017 Future Test Test Name Order Date SLEEP STUDY CPAP/BiPAP TITRATION 018 Insurance Providers Payer Name Payer Address Payer Phone Subscriber Number Group Number Insured Name Patient Relationship to Insured Coverage Start Date Coverage End Date [facility] [address] [place] [address] [id number] José Miguel Samaniego Self - patient is the insured Medical (General) History Medical History History ICD Code Depression F32.9 Dyslipidemia E78.5 Hypertension I10 Obesity E66.9 Back pain M54.9 Surgical History Surgery Date(Month/Year) Colonoscopy Elbow surgery Pilonidal cyst excision
--- OUTSIDE RECORDS SUMMARY | 2024-05-14 16:34 | XMS_ITS | Encounter Summary ---
Author Organization [facility] Address [address] [place] [address] Care Team Providers Care Music Grapher Name Role Phone Adam Rossi MD Primary Care Provider [phone] Jack Adkins MD Primary Care Provider [phone] Stephen Martins MD Primary Care Provider [phone] Fabian Correa MD Primary Care Provider [phone] Kathleen Ball DNP Unavailable [phone] Martha Crump AMPOULE EXAMINER BC Unavailable Unavail able Ewa Nino MD Primary Care Provider [phone] Encounter Details Date Type Department Care Team (Late st Contact Info) Description 09/05/2006 Orders Only [facility] [address] [place] [id number] MD [address] [place] [address] Social History Tobacco Use Types Packs/Day Years [...] 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 file Not on file documented as of this encounter Plan of Treatment Not on file documented as of this encounter Results * Due to [place] state law, this organization might not be [...] LAB SAME DAY RESULT Final Resul t [facility] [address] [place] [address] documented in this encounter Visit Diagnoses Diagnosis OSTEOARTHRITIS- Primary Osteoarthrosis, unspecified whether generalized or localized, unspecified site OSTEOARTHRITIS Osteoarthrosis, unspecified whether generalized or localized, unspecified site documented in this encounter Care Teams Music Grapher Relationship Specialty Start Date End Date Adam Rossi MD [address] [place] [address] PCP - General 08/10/09 03/19/14 Jack Adkins MD [address] [place] [address] PCP - General 11/17/08 08/09/09 Stephen Martins MD [address] [place] [address] PCP - General 11/11/07 11/16/08 Fabian Correa MD [address] [place] [address] PCP - General 06/22/06 11/10/07 Kathleen Ball DNP [address] [place] [address] PCP - Backup PCP 11/11/07 05/18/11 Martha Crump APRN [address] [place] [address] PCP - Backup PCP Internal Medicine 05/19/11 04/20/14 Ewa Nino MD [address] [place] [address] PCP - General Family Medicine 03/20/14 documented as of this encounter
--- OUTSIDE RECORDS SUMMARY | 2024-05-14 16:34 | XMS_ITS | Encounter Summary ---
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 Total should be less than 200; LDL < 130; HDL is good and triglycerides are normal. Needs to be more diligent about low fat, low cholesterol diet ,regular exercise and losing weight. ALT is elevated. He needs to lose weight this is likely r/t fatty liver disease. I have ordered more labs(hepatic function panel, hepatitis screen and ferritin). NON-FASTING Keep appointment for August with Martha Ruff NP Thanks documented in this encounter Plan of Treatment Not on file documented as of this encounter Procedures * Due to [place] GoTable law, this organization might not be sharing negative HIV tests. Procedure Name Priority Date/Time Associated Diagnosis Comments ALANINE AMINOTRANSFERASE (ALT), SERUM Routine 05/23/2011 9:30 AM EDT HTN (hypertension) Lipid screening PROSTATE SPECIFIC ANTIGEN (PSA) TOTAL, SERUM Routine 05/23/2011 9:30 AM EDT Screening for prostate cancer LIPID PANEL WITH REFLEX TO DIRECT LDL Routine 05/23/2011 9:30 AM EDT HTN (hypertension) Lipid screening BASIC METABOLIC PANEL WITH (GFR) Routine 05/23/2011 9:30 AM EDT HTN (hypertension) documented in this encounter Results * Due to [place] state law, this organization might not be sharing negative HIV tests. * MITOCHONDRIAL ANTIBODY W/REFLEX TO TITER (05/25/2011 11:47 AM EDT) Mitochondria Ab Negative Negative [facility] Comment:{MITOCHONDRIAL AB SC REEN {[id number]) 05/25/2011 11:4 7 AM EDT 05/25/2011 6:28 PM EDT Narrative Resulting Agency Comment [id number] Kathleen Ball DNP LABORATORY Final Result [facility] [address] [place] [address] * HEPATITIS C ANTIBODY, SERUM (05/25/2011 11:47 AM EDT) Hepatitis C virus Ab NON-REACTI VE NON-REACT SOLEDAD [facility] Comment:{HEPATITIS C ANTIBOD Y {[id number]) Hepatitis C virus Ab Signal/Cutoff 0.07 <1.00 [facility] Comment:{SIGNAL TO CUT-OFF { [id number]) 05/25/2011 11:4 7 AM EDT 05/25/2011 6:28 PM EDT Narrative Resulting Agency Comment [id number] Kathleen Roman [facility] LABORATORY Final Result Performing Organization Address City/[facility] Co de Phone Number [facility] [address] [place] [address] * HEPATITIS A ANTIBODY, TOTAL WITH REFLEX TO IGM (05/25/2011 11:47 AM EDT) Hepatitis A virus Ab NON-REACTI VE NON-REACT SOLEDAD [facility] Comment:{HEPATITIS A AB, TOT AL W/REFL IGM {[id number]) 05/25/2011 11:4 7 AM EDT 05/25/2011 6:28 PM EDT Narrative Resulting Agency Comment [id number] Kathleen Ball [facility] LABORATORY Final Result Performing Organization Address [facility] de Phone Number [facility] [address] [place] [address] * HEPATITIS B CORE ANTIBODY, TOTAL, SERUM (05/25/2011 11:47 AM EDT) Hepatitis B virus core Ab NON-REACTI VE NON-REACT SOLEDAD [facility] Comment:{HEPATITIS B CORE AB TOTAL {[id number]) 05/25/2011 11:4 7 AM EDT 05/25/2011 6:28 PM EDT Narrative Resulting Agency Comment [id number] Kathleen Abel Ball [facility] LABORATORY Final Result Performing Organization Address City/[facility] Co de Phone Number [facility] [address] [place] [address] * HEPATITIS B SURFACE ANTIGEN (05/25/2011 11:47 AM EDT) Hepatitis B virus surface Ag NON-REACTI VE NON-REACT SOLEDAD [facility] Comment:{HEPATITIS B SURFACE ANTIGEN {[id number]) 05/25/2011 11:4 7 AM EDT 05/25/2011 6:28 PM EDT Narrative Resulting Agency Comment [id number] Kathleen Ball [facility] LABORATORY Final Result Performing Organization Address [facility] Co de Phone Number [facility] [address] [place] [address] * IRON PROFILE (IRON/TIBC), SERUM (05/25/2011 11:47 AM EDT) Iron 126 45 - 170 mcg/dL [facility] Comment:{IRON, TOTAL {[id number]) Iron binding capacity 375 250 - 425 mcg/dL [facility] Comment:{IRON BINDING CAPACI TY {[id number]) Iron saturation 34 20 - 50 % (calc) [facility] Comment:{% SATURATION {[id number]) 05/25/2011 11:4 7 AM EDT 05/25/2011 6:28 PM EDT Narrative Resulting Agency Comment [id number] Kathleen Ball [facility] LABORATORY Final Result Performing Organization Address [facility] de Phone Number [facility] [address] [place] [phone] * FERRITIN (05/25/2011 11:47 AM EDT) Ferritin 101 20 - 380 ng/mL [facility] Comment:{FERRITIN {[id number]) 05/25/2011 11:4 7 AM EDT 05/25/2011 6:28 PM EDT Narrative Resulting Agency Comment [id number] Kathleen Ball [facility] LABORATORY Final Result Performing Organization Address [facility] Co de Phone Number [facility] [address] [place] [address] * (ABNORMAL) HEPATIC FUNCTION PANEL (05/25/2011 11:47 AM EDT) Protein Total (Serum) 6.9 6.2 - 8.3 g/dL [facility] Comment:{PROTEIN, TOTAL {[id number]) Albumin 4.6 3.6 - 5.1 g/dL [facility] Comment:{ALBUMIN {[id number]) Globulin 2.3 2.1 - 3.7 g/dL (calc) [facility] Comment:{GLOBULIN {[id number]) Albumin/Globulin 2.0 1.0 - 2.1 (calc) [facility] Comment:{ALBUMIN/GLOBULIN RA FABIOLA {[id number]) Bilirubin Total 0.9 0.2 - 1.2 mg/dL [facility] Comment:{BILIRUBIN, TOTAL {[id number]) Bilirubin Direct 0.2 < OR = 0.2 mg/dL [facility] Comment:{BILIRUBIN, DIRECT { [id number]) Bilirubin Indirect 0.7 0.2 - 1.2 mg/dL (calc) [facility] Comment:{BILIRUBIN, INDIRECT {[id number]) Alkaline phosphatase 48 40 - 115 U/L [facility] Comment:{ALKALINE PHOSPHATAS E {[id number]) AST (SGOT) 38(H) 10 - 35 U/L [facility] Comment:{AST {[id number]) ALT (SGPT) 68(H) 9 - 60 U/L [facility] Comment:{ALT {[id number]) 05/25/2011 11:4 7 AM EDT 05/25/2011 6:28 PM EDT Narrative Resulting Agency Comment [id number] Kathleen Ball DNP LABORATORY Final Result [facility] [address] [place] [address] * PROSTATE SPECIFIC ANTIGEN (PSA) TOTAL, SERUM (05/23/2011 9:30 AM EDT) PSA 0.6 < OR = 4.0 ng/mL [facility] Comment: {PSA, TOTAL {[id number]) This test was performed using the Siemens chemiluminescent method. Values obtained from different assay methods cannot be used interchangeably. PSA levels, regardless of value, should not be interpreted as absolute evidence of the presence or absence of disease. 05/23/2011 9:30 AM EDT 05/23/2011 7:57 PM EDT Narrative Resulting Agency Comment [id number] Kathleen Roman Lizzy DNP LABORATORY Final Result [facility] [address] [place] [address] * BASIC METABOLIC PANEL WITH (GFR) (05/23/2011 9:30 AM EDT) Glucose 90 65 - 99 mg/dL [facility] Comment: {GLUCOSE {[id number]) ? Fasting reference interval Urea Nitrogen Blood (BUN) 17 7 - 25 mg/dL [facility] Comment:{UREA NITROGEN (BUN) {[id number]) Creatinine 0.74 0.70 - 1.33 mg/dL [facility] Comment: {CREATININE {[id number]) For patients >49 years of age, the reference limit for Creatinine is approximately 13% higher for people identified as -Spanish. GFR 105 > OR = 60 mL/min/1 .73m2 [facility] Comment:{eGFR NON-AFR. AMERI CAN {[id number]) GFR () 122 > OR = 60 mL/min/1 .73m2 [facility] Comment:{eGFR AMERIC AN {[id number]) BUN/Creatinine Ratio NOT APPLICABLE 6 - 22 (calc) [facility] Comment:{BUN/CREATININE RATI O {[id number]) Sodium 137 135 - 146 mmol/L [facility] Comment:{SODIUM {[id number]) Potassium 4.0 3.5 - 5.3 mmol/L [facility] Comment:{POTASSIUM {[id number]) Chloride 103 98 - 110 mmol/L [facility] Comment:{CHLORIDE {[id number]) Carbon dioxide 22 21 - 33 mmol/L [facility] Comment:{CARBON DIOXIDE {[id number]) Calcium 9.6 8.6 - 10.3 mg/dL [facility] Comment:{CALCIUM {[id number]) 05/23/2011 9:30 AM EDT 05/23/2011 7:57 PM EDT Narrative [facility] - 05/23/2011 9:31 PM EDT Please note that this estimated GFR does [...] needs for GFR calculation. Resulting Agency Comment [id number] Kathleen Ball [facility] LABORATORY Final Result Performing Organization Address City/[facility]/ZIP Co de Phone Number [facility] [address] [place] [address] * (ABNORMAL) ALANINE AMINOTRANSFERASE (ALT), SERUM (05/23/2011 9:30 AM EDT) ALT (SGPT) 78(H) 9 - 60 U/L [facility] Comment:{ALT {[id number]) 05/23/2011 9:30 AM EDT 05/23/2011 7:57 PM EDT Narrative Resulting Agency Comment [id number] Kathleen Ball [facility] LAB SAME DAY RESULT Final Re sult Performing Organization Address [facility] Co de Phone Number [facility] [address] [place] [address] * (ABNORMAL) LIPID PANEL WITH REFLEX TO DIRECT LDL (05/23/2011 9:30 AM EDT) Cholesterol 230(H) 125 - 200 mg/dL [facility] Comment:{CHOLESTEROL, TOTAL {[id number]) HDL Cholesterol 59 > OR = 40 mg/dL [facility] Comment:{HDL CHOLESTEROL {[id number]) Triglyceride 81 <150 mg/dL [facility] Comment:{TRIGLYCERIDES {[id number]) LDL Cholesterol 155(H) <130 mg/dL (calc) [facility] Comment: {LDL-CHOLESTEROL {[id number]) Desirable range <100 mg/dL for patients with CHD or diabetes and <70 mg/dL for diabetic patients with known heart disease. CHOL/HDL Ratio 3.9 < OR = 5.0 (calc) [facility] Comment:{CHOL/HDLC RATIO {[id number]) Cholesterol Non-HDL 171 mg/dL (calc) [facility] Comment: {NON-HDL CHOLESTEROL {[id number]) Target for non-HDL cholesterol is 30 mg/dL higher than LDL cholesterol target. 05/23/2011 9:30 AM EDT 05/23/2011 7:57 PM EDT Narrative Resulting Agency Comment [id number] Kathleen Ball [facility] LABORATORY Final Result [facility] [address] [place] [address] documented in this encounter Visit Diagnoses Diagnosis HTN (hypertension) Unspecified essential hypertension Lipid screening Screening for lipoid disorders Screening for prostate cancer Special screening for malignant neoplasm of prostate LFT elevation Other abnormal blood chemistry Obesity Obesity, unspecified documented in this encounter Care Teams Bull Wheel Worker Relationship Specialty Start Date End Date Adam Rossi MD [address] [place] [address] PCP - General 08/10/09 03/19/14 Martha Crump, WHEEL FITTER [address] [place] [address] PCP - Backup PCP Internal Medicine 05/19/11 04/20/14 Ewa Nino MD [address] [place] [address] PCP - General Family Medicine 03/20/14 documented as of this encounter
--- OUTSIDE RECORDS SUMMARY | 2024-05-14 16:34 | XMS_ITS | Encounter Summary ---
Author Organization [facility] Address [address] [place] [address] Care Team Providers Care Nuclear Medicine Chief Technologist Name Role Phone Adam Rossi MD Primary Care Provider [phone] Jack Adkins MD Primary Care Provider [phone] Stephen Martins MD Primary Care Provider Fabian Correa MD Primary Care Provider [phone] Kathleen Ball DNP Unavailable [phone] Martha Crump HAND ALTERATIONS SEAMSTRESS BC Unavailable Unavail able Ewa Nino MD Primary Care Provider [phone] Encounter Details Date Type Department Care Team (Late st Contact Info) Description 09/04/2006 Orders Only [facility] [address] [facility] [address] [place] [address] Eloisa Johnston, RN MSN Social History Tobacco Use Types Packs/Day Years [...] 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 Not on file documented as of this encounter Plan of Treatment Not on file documented as of this encounter Visit Diagnoses Not on filedocumented in this encounter Care Teams Nuclear Medicine Chief Technologist Relationship Specialty Start Date End Date dAam Rossi MD [address] [place] [address] PCP - General 08/10/09 03/19/14 Jack Adkins MD [address] [place] [address] PCP - General 11/17/08 08/09/09 Stephen Martins MD [address] [place] [address] PCP - General 11/11/07 11/16/08 Fabian Correa MD [address] [place] [address] PCP - General 06/22/06 11/10/07 Kathleen Ball, [facility] [address] [place] [address] PCP - Backup PCP 11/11/07 05/18/11 Martha Crump, HAND ALTERATIONS SEAMSTRESS [address] [place] [address] PCP - Backup PCP Internal Medicine 05/19/11 04/20/14 Ewa Nino MD [address] [place] [address] PCP - General Family Medicine 03/20/14 documented as of this encounter
--- OUTSIDE RECORDS SUMMARY | 2024-05-14 16:34 | XMS_ITS | Encounter Summary ---
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 Procedure Name Priority Date/Time Associated Diagnosis Comments HEPATITIS B SURFACE ANTIGEN Routine 05/25/2011 11:47 AM EDT LFT elevation Obesity HEPATITIS C AB WITH REFLEX TO RNA PCR, SERUM Routine 05/25/2011 11:47 AM EDT LFT elevation Obesity HEPATITIS A ANTIBODY, TOTAL WITH REFLEX TO IGM Routine 05/25/2011 11:47 AM EDT LFT elevation Obesity HEPATITIS B CORE ANTIBODY, TOTAL, SERUM Routine 05/25/2011 11:47 AM EDT LFT elevation Obesity MITOCHONDRIAL ANTIBODY W/REFLEX TO TITER Routine 05/25/2011 11:47 AM EDT LFT elevation Obesity IRON PROFILE (IRON/TIBC), SERUM Routine 05/25/2011 11:47 AM EDT LFT elevation Obesity FERRITIN Routine 05/25/2011 11:47 AM EDT LFT elevation Obesity HEPATIC FUNCTION PANEL (ALT,AST,ALK PH,BILI'S,TP,ALB) Routine 05/25/2011 11:47 AM EDT LFT elevation Obesity documented in this encounter Results * Due to [place] state law, this organization might not be sharing negative HIV tests. * MITOCHONDRIAL ANTIBODY W/REFLEX TO TITER (05/25/2011 11:47 AM EDT) Mitochondria Ab Negative Negative [facility] Comment:{MITOCHONDRIAL AB SC REEN {[id number]) 05/25/2011 11:4 7 AM EDT 05/25/2011 6:28 PM EDT Narrative Resulting Agency Comment [id number] Kathleen Ball DNP LABORATORY Final Result [facility] [address] [place] [address] * HEPATITIS C ANTIBODY, SERUM (05/25/2011 11:47 AM EDT) Hepatitis C virus Ab NON-REACTI VE NON-REACT [facility] Comment:{HEPATITIS C ANTIBOD Y {[id number]) Hepatitis C virus Ab Signal/Cutoff 0.07 <1.00 [facility] Comment:{SIGNAL TO CUT-OFF { [id number]) 05/25/2011 11:4 7 AM EDT 05/25/2011 6:28 PM EDT Narrative Resulting Agency Comment [id number] Kathleen Garciacawillard [facility] LABORATORY Final Result [facility] [address] [place] [address] * HEPATITIS A ANTIBODY, TOTAL WITH REFLEX TO IGM (05/25/2011 11:47 AM EDT) Hepatitis A virus Ab NON-REACTI VE NON-REACT [facility] Comment:{HEPATITIS A AB, TOT AL W/REFL IGM {[id number]) 05/25/2011 11:4 7 AM EDT 05/25/2011 6:28 PM EDT Narrative Resulting Agency Comment [id number] Kathleen Garciacawillard [facility]OR[facility]ORY Final Result Performing Organization Address [facility] Co de Phone Number [facility] [address] [place] [address] * HEPATITIS B CORE ANTIBODY, TOTAL, SERUM (05/25/2011 11:47 AM EDT) Hepatitis B virus core Ab NON-REACTI VE NON-REACT [facility] Comment:{HEPATITIS B CORE AB TOTAL {[id number]) 05/25/2011 11:4 7 AM EDT 05/25/2011 6:28 PM EDT Narrative Resulting Agency Comment [id number] Kathleen Garciacawillard [facility] Final Result [facility] [address] [place] [address] * HEPATITIS B SURFACE ANTIGEN (05/25/2011 11:47 AM EDT) Hepatitis B virus surface Ag NON-REACTI VE NON-REACT [facility] Comment:{HEPATITIS B SURFACE ANTIGEN {[id number]) 05/25/2011 11:4 7 AM EDT 05/25/2011 6:28 PM EDT Narrative Resulting Agency Comment [id number] Kathleen [facility] Final Result Performing Organization Address [facility] de Phone Number [facility] [address] [place] [address] * IRON PROFILE (IRON/TIBC), SERUM (05/25/2011 11:47 AM EDT) Iron 126 45 - 170 mcg/dL [facility] Comment:{IRON, TOTAL {[id number]) Iron binding capacity 375 250 - 425 mcg/dL [facility] Comment:{IRON BINDING CAPACI TY {[id number]) Iron saturation 34 20 - 50 % (calc) [facility] Comment:{% SATURATION {[id number]) 05/25/2011 11:4 7 AM EDT 05/25/2011 6:28 PM EDT Narrative Resulting Agency Comment [id number] Kathleen K [facility] Final Result Performing Organization Address [facility] de Phone Number [facility] [address] [place] [address] * FERRITIN (05/25/2011 11:47 AM EDT) Pathologist [facility] Ferritin 101 20 - 380 ng/mL [facility] Comment:{FERRITIN {[id number]) 05/25/2011 11:4 7 AM EDT 05/25/2011 6:28 PM EDT Narrative Resulting Agency Comment [id number] Kathleen [facility] Final Result Performing Organization Address [facility] de Phone Number [facility] [address] [place] [address] * (ABNORMAL) HEPATIC FUNCTION PANEL (05/25/2011 11:47 AM EDT) Protein Total (Serum) 6.9 6.2 - 8.3 g/dL [facility] Comment:{PROTEIN, TOTAL {[id number]) Albumin 4.6 3.6 - 5.1 g/dL [facility] Comment:{ALBUMIN {[id number]) Globulin 2.3 2.1 - 3.7 g/dL (calc) [facility] Comment:{GLOBULIN {[id number]) Albumin/Globulin 2.0 1.0 - 2.1 (calc) [facility] Comment:{ALBUMIN/GLOBULIN RA FABIOLA {[id number]) Bilirubin Total 0.9 0.2 - 1.2 mg/dL [facility] Comment:{BILIRUBIN, TOTAL {[id number]) Bilirubin Direct 0.2 < OR = 0.2 mg/dL [facility] Comment:{BILIRUBIN, DIRECT { [id number]) Bilirubin Indirect 0.7 0.2 - 1.2 mg/dL (calc) [facility] Comment:{BILIRUBIN, INDIRECT {[id number]) Alkaline phosphatase 48 40 - 115 U/L [facility] Comment:{ALKALINE PHOSPHATAS E {[id number]) AST (SGOT) 38(H) 10 - 35 U/L [facility] Comment:{AST {[id number]) ALT (SGPT) 68(H) 9 - 60 U/L [facility] Comment:{ALT {[id number]) 05/25/2011 11:4 7 AM EDT 05/25/2011 6:28 PM EDT Narrative Resulting Agency Comment [id number] Kathleen Ball DNP LABORATORY Final Result Performing Organization Address City/State/[facility] Co de Phone Number [facility] [address] [place] [address] documented in this encounter Visit Diagnoses Diagnosis LFT elevation Other abnormal blood chemistry Obesity Obesity, unspecified documented in this encounter Care Teams Crusher Loader Equipment Operator Relationship Specialty Start Date End Date Adam Rossi MD [address] [place] [address] PCP - General 08/10/09 03/19/14 Martha Crump, PHOTOGRAPH RETOUCHER [address] [place] [address] PCP - Backup PCP Internal Medicine 05/19/11 04/20/14 Ewa Nino MD [address] [place] [address] PCP - General Family Medicine 03/20/14 documented as of this encounter
--- OUTSIDE RECORDS SUMMARY | 2024-05-14 16:34 | XMS_ITS | Encounter Summary ---
Author Organization [facility] Address [address] [place] [address] Care Team Providers Care Portable Sawyer Name Role Phone Adam Rossi MD Primary Care Provider [phone] Jack Adkins MD Primary Care Provider [phone] tSephen Martins MD Primary Care Provider [phone] Kathleen Ball DNP Unavailable [phone] Martha Crump APRN Unavailable Unavail able Ewa Nino MD Primary Care Provider [phone] Reason for Referral * OUTPT P&D-MED SOLUTIONS (Routine) - ZZ Not Required Specialty Diagnoses / Procedures Referred By Susy garrido Referred To Contact Magnetic Resonance Imaging Diagnoses Liver cyst Back pain Procedures REQUEST FOR MRI ABDOMEN W/O CONTRAST FC Kathleen Ball DNP [address] [place] [address] Phone: tel: fax: [address] [place] [address] [facility] [address] [place] [address] Phone: tel: Referral ID Status Reason Start Date Expiration Date Visits Requested Visits Authorized [id number] ZZ Not Required Specialty Services Required 09/03/2008 1 1 Encounter Details Date Type Department Care Team (Late st Contact Info) Description 09/03/2008 Orders Only [facility] [address] [place] [id number] Kathleen Ball DNP [address] [place] [address] Social History Tobacco Use Types Packs/Day Years Used Date Smoking Tobacco: Never Assessed Cigarettes Smokeless Tobacco: Former Snuff Comments:3 CIG WEEKLY Alcohol Use Standard Drinks/Week Comments No 0 (1 standard drink = 0.6 oz pur e alcohol) Sex and Gender Information Value Date Recorded Sex Assigned at Not on file Legal Sex Male 10:05 PM EDT Gender Identity Not on file Sexual Orientation Not on file 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 Procedure Name Priority Date/Time Associated Diagnosis Comments MRI ABDOMEN W/O CONTRAST MATERIAL(S) FOLLOWED BY CONTRAST MATERIAL(S) AND Routine 09/08/2008 9:45 AM EDT documented in this encounter Results * Due to [place] law, this organization might not be sharing negative HIV tests. * MRI ABDOMEN W/O CONTRAST MATERIAL(S) FOLLOWED [...] LIVER CYST TEST(S) PROCESSED BY [facility] Kathleen Ball DNP CONTRAST STUDY- OTHER Final Result documented in this encounter Visit Diagnoses Diagnosis Liver cyst Other specified disorders of liver Back pain Backache, unspecified documented in this encounter Care Teams Portable Sawyer Relationship Specialty Start Date End Date Adam Rossi MD [address] [place] [address] PCP - General 08/10/09 03/19/14 Jack Adkins MD [address] [place] [address] PCP - General 11/17/08 08/09/09 Stephen Martins MD [address] [place] [address] PCP - General 11/11/07 11/16/08 Kathleen Ball DNP [address] [place] [address] PCP - Backup PCP 11/11/07 05/18/11 Martha Crump, WIRELESS SALES MANAGER [address] [place] [address] PCP - Backup PCP Internal Medicine 05/19/11 04/20/14 Ewa Nino MD [address] [place] [address] PCP - General Family Medicine 03/20/14 documented as of this encounter
== END 2024-05-14 15:27 | disposition home or self-care (01) ==
LOC: HO.HID 13:51
PROVIDERS: Visit Provider Internal Medicine
DX: F11.90 Opioid use, unspecified, uncomplicated (principal); F32.A Depression, unspecified; E78.00 Pure hypercholesterolemia, unspecified; I10 Essential (primary) hypertension
CPT/HCPCS: 99204

== ENCOUNTER 2024-07-11 13:44 | Outpatient (AMB) | payer MEDICARE, BC, SELFPAY ==
--- NOTE | 2024-07-11 13:47 | A.OFFVISCC_ITS ---
Vital Signs 07/11/24 13:54 BP 140/82 H Blood Pressure Location Lt brachial Position Sitting Pulse 100 Pulse Source Pulse Oximeter Pulse Oximetry (%) 97 Oxygen Delivery Method Room Air Intake Visit Reasons: 2 mth, follow up,Mat Visit Intake Note: Patient presents for MAT Allergies cephalexin [From Keflex] Allergy (Unknown, Verified 05/14/24 14:39) Unknown Penicillins Allergy (Unknown, Verified 05/14/24 14:39) Unknown HPI HPI 2 mth, follow up,Mat Visit: Details: He has been doing well. His script had been not refilled and then was. Review of Systems Const All systems reviewed & are unremarkable except as noted in HPI and below Physical Exam Vital Signs: Last Vital Signs Pulse 100 07/11/24 13:54 BP 140/82 H 07/11/24 13:54 Pulse Ox 97 07/11/24 13:54 Oxygen Delivery Method Room Air 07/11/24 13:54 Const General: cooperative [facility] Medical History Dislocation of elbow, anterior, left, open Depression Hypercholesterolemia Hypertension Opioid use disorder Assessment & Plan Assessment & Plan (1) Opioid use disorder: Comment: He is doing well on Suboxone Code(s): F11.90 - Opioid use, unspecified, uncomplicated Category: Medical Plan: Would continue Suboxone 8/2 bid,60 which is one month and one refill. Medications: New buprenorphine-naloxone 8-2 mg (Suboxone) 1 film sublingual BID 60 ea 1RF 30 days Discontinued buprenorphine-naloxone 12-3 mg (Suboxone) Discontinued Reason: None 1 film sublingual Q24H 30 days 30 ea 0RF
--- OUTSIDE RECORDS SUMMARY | 2024-07-11 13:53 | XMS_ITS | Encounter Summary ---
Author Organization [facility] Address [address] [place] [address] Care Team Providers Care Creative Perfumer Name Role Phone Adam Rossi MD Primary Care Provider [phone] Martha Crump APRN Unavailable Unavail able Ewa Nino MD Primary Care Provider [phone] Reason for Referral * OUTPT PROCEDURES AND DIAGNOSTICS (Routine) - ZZ Not Required Specialty Diagnoses / Procedures Referred By Contyeyo t Referred To Contact Diagnoses Snoring Procedures REQUEST FOR SLEEP STUDY NON-FC Pepe Kincaid MD [address] [place] [address] Phone: tel: fax: [facility] [address] [place] [address] Referral ID Status Reason Start Date Expiration Date Visits Requested Visits Authorized [id number] ZZ Not Required Specialty Services Required 03/14/2013 1 1 Encounter Details Date Type Department Care Team (Late st Contact Info) Description 03/14/2013 Orders Only [facility] Pulmonary [address] [facility] [address] [place] [address] Pepe Kincaid MD [address] [place] [address] Social History Tobacco Use Types [...] 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 Not on file documented as of this encounter Plan of Treatment Scheduled Orders Name Type Priority Associated Diagnoses Orde r Schedule REQUEST FOR SLEEP STUDY NON-FC Procedures Routine Snoring Ordered: 03/14/2013 documented as of this encounter Visit Diagnoses Diagnosis Snoring- Primary Other dyspnea and respiratory abnormality documented in this encounter Care Teams Creative Perfumer Relationship Specialty Start Date End Date Adam Rossi MD [address] [place] [address] PCP - General 08/10/09 03/19/14 Martha Crump APRN [address] [place] [address] PCP - Backup PCP Internal Medicine 05/19/11 04/20/14 Ewa Nino MD [address] [place] [address] PCP - General Family Medicine 03/20/14 documented as of this encounter
[2024-07-11 13:54] VITALS: BP 140/82; PULSE 100; O2SAT 97
== END 2024-07-11 14:36 | disposition home or self-care (01) ==
LOC: HO.HCC 13:44
PROVIDERS: Visit Provider Internal Medicine
DX: F11.90 Opioid use, unspecified, uncomplicated (principal)
CPT/HCPCS: 99213

== ENCOUNTER → 2024-07-11 13:44 | Outpatient (BNVA) | payer MEDICARE, BC, SELFPAY | PROVIDERS: Visit Provider Internal Medicine | DX: F11.20 Opioid dependence, uncomplicated (principal) | CPT/HCPCS: 99212 ==

== ENCOUNTER 2024-09-10 12:56 | Outpatient (AMB) | payer MEDICARE, BC, SELFPAY ==
[2024-09-10 12:57] VITALS: PULSE 94; O2SAT 95; BMI 34.7
--- NOTE | 2024-09-10 12:57 | A.OFFVIS_ITS ---
Vital Signs 09/10/24 12:57 Height 5 ft 10 in Weight 242 lb BMI 34.7 Pulse 94 Pulse Source Pulse Oximeter Pulse Oximetry (%) 95 Intake Visit Reasons: MAT Allergies cephalexin (From Keflex) Allergy (Unknown, Verified 09/10/24 13:04) Unknown Penicillins Allergy (Unknown, Verified 09/10/24 13:04) Unknown HPI HPI MAT: Details: He is doing well with Suboxone. 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 He is having slides of bone marrow sent to [facility]. He saw his PCP and was given first Hepatitis B vaccine and thinks may have had it in past in [employer]. He was at [employer] and also follows with [place] and was given contaminated water while in service he says. [facility] Medical History Dislocation of elbow, anterior, left, open Depression Hypercholesterolemia Hypertension Opioid use disorder Review of Systems Const All systems reviewed & are unremarkable except as noted in HPI and below Physical Exam Vital Signs: Last Vital Signs Pulse 94 09/10/24 12:57 Pulse Ox 95 09/10/24 12:57 BMI result Body Mass Index 34.7 Assessment & Plan Assessment & Plan (1) Opioid use disorder: Comment: He is doing well on Suboxone He has no depression/SI/HI He has MGUS. Code(s): F11.90 - Opioid use, unspecified, uncomplicated Category: Medical Plan: Continue Suboxone 8/2 bid strips,60 and now interval increased to two refills so will see in three months. He said pharmacy has straightened out his interval and dosing now. Receive Hepatitis A vaccine,PCV-20 or 21 ,meningitis vaccine and complete Hepatitis B vaccine. Medications: New buprenorphine-naloxone 8-2 mg (Suboxone) 1 film sublingual BID 60 ea 2RF 30 days Coding Level of Care Code Est Pt Level 3 (69973) Diagnoses Opioid use disorder F11.90
--- OUTSIDE RECORDS SUMMARY | 2024-09-10 13:27 | XMS_ITS | Encounter Summary ---
Author Organization [facility] Address [address] [place] [address] Care Team Providers Care Civil Engineer Name Role Phone Adam Rossi MD Primary Care Provider [phone] Martha Crump APRN Unavailable Unavail able Ewa Nino MD Primary Care Provider Reason for Referral * OUTPT PROCEDURES AND DIAGNOSTICS (Routine) - ZZ Not Required Specialty Diagnoses / Procedures Referred By Contyeyo t Referred To Contact Diagnoses Snoring Procedures REQUEST FOR SLEEP STUDY NON-FC Pepe Kincaid MD [address] [place] [address] Phone: tel: fax: [facility] [address] [place] [address] Referral ID Status Reason Start Date Expiration Date Visits Requested Visits Authorized [id number] ZZ Not Required Specialty Services Required 03/14/2013 1 1 Encounter Details Date Type Department Care Team (Late st Contact Info) Description 03/14/2013 Orders Only [facility] Pulmonary [address] [facility] [address] [place] [address] Pepe Kincaid MD [address] [place] [address] Social History Tobacco Use Types [...] 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 Not on file documented as of this encounter Plan of Treatment Scheduled Orders Name Type Priority Associated Diagnoses Orde r Schedule REQUEST FOR SLEEP STUDY NON-FC Procedures Routine Snoring Ordered: 03/14/2013 documented as of this encounter Visit Diagnoses Diagnosis Snoring- Primary Other dyspnea and respiratory abnormality documented in this encounter Care Teams Civil Engineer Relationship Specialty Start Date End Date Adam Rossi MD [address] [place] [address] PCP - General 08/10/09 03/19/14 Martha Crump APRN [address] [place] [address] PCP - Backup PCP Internal Medicine 05/19/11 04/20/14 Ewa Nino MD [address] [place] [address] PCP - General Family Medicine 03/20/14 documented as of this encounter
--- OUTSIDE RECORDS SUMMARY | 2024-09-10 13:27 | XMS_ITS | Patient Health Record ---
Author Organization [facility] Address [address] [address] Care Team Providers Care Phosphatic Fertilizer Supervisor Name Role Phone Ewa Nino Primary Care Provider Selina Aldridge Unavailable [phone] Reason For Referral No Information Medications Medication SIG (Take, Route, Frequency, Duration) Notes Start Date End Date Status Suprep Bowel Prep Kit 1.6 g-3.13 g-17.5 g/177 mL liquid 177 mL orally twice; Duration: 2 dose(s) 05/25/2014 Active MoviPrep - powder for reconstitution 240 mL orally every 15 minutes COLON APPT ; Duration: 16 dose(s) 05/22/2014 Active Social History Social History Additional Details Category Social Info Options Details Social History Alcohol: No Drug use: No Exercise: Yes Checked Cholesterol levels No Seat belt usage Yes Gun in house No Plan Of Treatment No Information Insurance Providers Payer Name Payer Address Payer Phone Subscriber Number Group Number Insured Name Patient Relationship to Insured Coverage Start Date Coverage End Date [facility] Federal Employee Plan [address] [place] [address] [id number] RIGOBERTO GALAN Self - patient is the insured
--- OUTSIDE RECORDS SUMMARY | 2024-09-10 13:27 | XMS_ITS | Patient Health Record ---
Author Organization [facility] Address [address] [place], [place] [address] Care Team Providers Care Dye Expert Name Role Phone Phu Lepe Primary Care Provider Unavailable Jose Brooke Unavailable [phone] Allergies Allergen (clinical drug ingredient) Drug/Non Drug [...] sleep nightly for the treatment of sleep apnea; Duration: lifetime Secondary Dx: Hypersomnia G47.10 04/16/2017 Active APAP Machine- 5-15 cm H2O using FFM and heated humidification Nightly q hs 06/08/2017 Active Aspirin 81 MG 1 tablet Orally Once a day Active Lisinopril 10 MG Oral Act silviano CPAP PRESSURE CHANGE as directed ANTONIETA SETTIN-20 cm/h20 SIG DATE: 07/19/2017 DX: G47.33 During sleep at night for the treatment of sleep apnea; Duration: LIFETIME 07/19/2017 Active Pravastatin Sodium 20 MG Oral; Duration: 90 Active amLODIPine Besylate 10 MG Oral; Duration: 90 Active FLUoxetine HCl 40 MG Oral; Duration: 90 Active Naproxen 500 MG take 1 tablet by selene th every 12 hours if needed . TAKE WITH FOOD. Oral; Duration: 30 Active Suboxone 8-2 MG (Schedule III Drug) PLACE 1 1/2 FILMS UNDER THE TONGUE ONCE A DAY Sublingual; Duration: 28 Active Immunizations Vaccine Route Administration Date Status Comme nts Zz Flucelvax Quadrivelant 2017 Unknown 11/08/2016 Admin istered [facility] Problems Problem Type SNOMED Code ICD Code Onset Dates Problem Status W/U Status Risk Notes Problem Hypersomnia (91226737) Hypersomnia, unspecified (G47.10) Active confirmed Problem Hypertension (97720335) Hypertension (I10) Active confirmed Problem Obstructive sleep apnea (89676489) Obstructive sleep apnea (G47.33) Active confirmed Problem Obesity (384902093) Obesity (E66.9) Active confirmed Plan Of Treatment Pending Test Test Name Order Date Chest X-Ray PA and Lateral 02/26/2017 Sleep Home Sleep Testing 03/14/2017 Future Test Test Name Order Date SLEEP STUDY CPAP/BiPAP TITRATION 018 Insurance Providers Payer Name Payer Address Payer Phone Subscriber Number Group Number Insured Name Patient Relationship to Insured Coverage Start Date Coverage End Date [facility] [address] [place] [address] [phone] [id number] José Miguel Samaniego Self - patient is the insured Medical (General) History Medical History History ICD Code Depression F32.9 Dyslipidemia E78.5 Hypertension I10 Obesity E66.9 Back pain M54.9 Surgical History Surgery Date(Month/Year) Colonoscopy Elbow surgery Pilonidal cyst excision
== END 2024-09-10 13:30 | disposition home or self-care (01) ==
LOC: HO.HCC 12:56
PROVIDERS: Visit Provider Internal Medicine
DX: F11.90 Opioid use, unspecified, uncomplicated (principal)
CPT/HCPCS: 99213

== ENCOUNTER → 2024-09-10 12:56 | Outpatient (BNVA) | payer MEDICARE, BC, SELFPAY | PROVIDERS: Visit Provider Internal Medicine | DX: F11.20 Opioid dependence, uncomplicated (principal) | CPT/HCPCS: 99212 ==

== ENCOUNTER 2024-12-10 12:56 | Outpatient (AMB) | payer MEDICARE, BC, SELFPAY ==
[2024-12-10 13:07] VITALS: BP 140/80; PULSE 82; O2SAT 97
--- NOTE | 2024-12-10 13:07 | A.OFFVIS_ITS ---
Vital Signs 12/10/24 13:07 BP 140/80 H Pulse 82 Pulse Oximetry (%) 97 Intake Visit Reasons: MAT Allergies cephalexin (From Keflex) Allergy (Unknown, Verified 12/10/24 13:07) Unknown Penicillins Allergy (Unknown, Verified 12/10/24 13:07) Unknown HPI Comments Details: History of Present Illness The patient is a 69-year-old male presenting primarily for the management of opioid use disorder. He is currently on Suboxone, taking two films daily, and reports feeling stable on this regimen. His prescriptions have been regularly refilled, confirming adherence to the prescribed treatment. Additionally, the patient is under investigation for possible B-cell lymphoma and Chronic Lymphocytic Leukemia (CLL). He will undergo a bone marrow biopsy next week. Presently, he is asymptomatic and has not reported any recent depressive symptoms, ideations, or constipation, and maintains a stable condition overall. Review of Systems - Psychiatric: Denies depression, suicidal or homicidal ideation - Gastrointestinal: Denies constipation - General: Reports feeling well Physical Exam - Vitals- Vital signs stable Results Plan Patient was informed and verbally consented to the use of an ambient scribe for clinic note documentation during this visit. 1. Opioid use, unspecified, uncomplicated F11.90 I will continue the current Suboxone therapy, as the patient remains stable and reports no issues. A prescription for 60 films, with two refills, has been issued. Follow-up will occur in three months. 2. Potential B-Cell Lymphoma And Cll The patient is scheduled for a bone marrow biopsy to further evaluate the possibility of B-cell lymphoma and CLL. Further treatment decisions will be determined based on the biopsy findings. Discussion Notes During our discussion, I confirmed the diagnosis of opioid use disorder and continued the Suboxone treatment plan. We discussed scheduling a follow-up in three months to reassess his progress and manage any side effects. Additionally, we talked about the upcoming bone marrow biopsy to investigate potential B-cell lymphoma and CLL. Currently, we remain watchful for any symptoms or changes, with further oncologic assessments planned post-biopsy. Medical Decision Making In managing the patient's opioid use disorder, continuation with Suboxone has been deemed effective and without side effects. My evaluation of his stable condition supports this decision, with provisions made for prescription refills and follow-up. Patient Instructions - Continue taking Suboxone as prescribed. - Attend the scheduled bone marrow biopsy next week. - Report any new symptoms, especially related to depression or gastrointestinal issues, immediately. - Return for follow-up care in three months. [facility] Medical History Dislocation of elbow, anterior, left, open Depression Hypercholesterolemia Hypertension Opioid use disorder Physical Exam Vital Signs: Last Vital Signs Pulse 82 12/10/24 13:07 BP 140/80 H 12/10/24 13:07 Pulse Ox 97 12/10/24 13:07 Assessment & Plan Assessment & Plan (1) Opioid use disorder: Code(s): F11.90 - Opioid use, unspecified, uncomplicated Category: Medical Plan as above Medications: New buprenorphine-naloxone 8-2 mg (Suboxone) 1 film sublingual BID 60 ea 2RF 30 days Coding Level of Care Code Est Pt Level 3 (04194) Diagnoses Opioid use disorder F11.90
--- OUTSIDE RECORDS SUMMARY | 2024-12-10 16:22 | XMS_ITS | Encounter Summary ---
Author Organization [facility] Address [address] [place] [address] Care Team Providers Care Fur Repair Inspector Name Role Phone Adam Rossi MD Primary Care Provider [phone] Jack Adkins MD Primary Care Provider [phone] Stephen Martins MD Primary Care Provider [phone] Fabian Correa MD Primary Care Provider [phone] Kathleen Ball DNP Unavailable [phone] Martha Crump GOVERNMENT PROGRAM MANAGER BC Unavailable Unavail able Ewa Nino MD Primary Care Provider Encounter Details Date Type Department Care Team (Late st Contact Info) Description 07/19/2006 Orders Only [facility] Otolaryngology [address] [facility] [address] [place] [address] Vicenta Pinto, [facility] [address] [place] [address] Social History Tobacco Use Types Packs/Day Years [...] 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 on file Not on file documented as of this encounter Plan of Treatment Not on file documented as of this encounter Visit Diagnoses Not on filedocumented in this encounter Care Teams Fur Repair Inspector Relationship Specialty Start Date End Date Adam Rossi MD [address] [place] [address] PCP - General 08/10/09 03/19/14 Jack Adkins MD [address] [place] [address] PCP - General 11/17/08 08/09/09 Stephen Martins MD [address] [place] [address] PCP - General 11/11/07 11/16/08 Fabian Correa MD [address] [place] [address] PCP - General 06/22/06 11/10/07 Kathleen Ball, ARI[facility] [address] [place] [address] PCP - Backup PCP 11/11/07 05/18/11 Martha Crump, [facility] [address] [place] [address] PCP - Backup PCP Internal Medicine 05/19/11 04/20/14 Ewa Nino MD [address] [place] [address] PCP - General Family Medicine 03/20/14 documented as of this encounter
--- OUTSIDE RECORDS SUMMARY | 2024-12-10 16:22 | XMS_ITS | Patient Health Record ---
Author Organization [facility] Address [address] [address] Care Team Providers Care Running Specialist Name Role Phone Ewa Nino Primary Care Provider Selina Aldridge Unavailable [phone] Reason For Referral No Information Medications Medication [...] Insured Coverage Start Date Coverage End Date [facility] Federal Employee Plan [address] [place] [address] [id number] RIGOBERTO GALAN Self - patient is the insured
--- OUTSIDE RECORDS SUMMARY | 2024-12-10 16:22 | XMS_ITS | Encounter Summary ---
Author Organization [facility] Address [address] [place] [address] Care Team Providers Care Gate Operator Name Role Phone Adam Rossi MD Primary Care Provider [phone] Jack Adkins MD Primary Care Provider [phone] Stephen Martins MD Primary Care Provider [phone] Fabian Correa MD Primary Care Provider [phone] Kathleen Ball DNP Unavailable [phone] Martha Crump SHEET METAL MECHANIC BC Unavailable Unavail able Ewa Nino MD Primary Care Provider [phone] Encounter Details Date Type Department Care Team (Late st Contact Info) Description 07/19/2006 Orders Only [facility] Otolaryngology [address] [place] [address] [address] [place] [address] Alis Ortega, RN [address] [place] [address] Social History Tobacco Use Types Packs/Day Years [...] 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 Not on file documented as of this encounter Plan of Treatment Not on file documented as of this encounter Visit Diagnoses Not on filedocumented in this encounter Care Teams Gate Operator Relationship Specialty Start Date End Date Adam Rossi MD [address] [place] [address] PCP - General 08/10/09 03/19/14 Jack Adkins MD [address] [place] [address] PCP - General 11/17/08 08/09/09 Stephen Martins MD [address] [place] [address] PCP - General 11/11/07 11/16/08 Fabian Correa MD [address] [place] [address] PCP - General 06/22/06 11/10/07 Kathleen Ball, ARIEL [address] [place] [address] PCP - Backup PCP 11/11/07 05/18/11 Martha Crump, SHEET METAL MECHANIC [address] [place] [address] PCP - Backup PCP Internal Medicine 05/19/11 04/20/14 Ewa Nino MD [address] [place] [address] PCP - General Family Medicine 03/20/14 documented as of this encounter
--- OUTSIDE RECORDS SUMMARY | 2024-12-10 16:22 | XMS_ITS | Encounter Summary ---
Author Organization [facility] Address [address] [place] [address] Care Team Providers Care Non Licensed Nuclear Plant Operator Name Role Phone Adam Rossi MD Primary Care Provider [phone] Martha Crump APRN Unavailable Unavail able Ewa Nino MD Primary Care Provider [phone] Reason for Referral * OUTPT PROCEDURES AND DIAGNOSTICS (Routine) - ZZ Not Required Specialty Diagnoses / Procedures Referred By Contyeyo t Referred To Contact Diagnoses Snoring Procedures REQUEST FOR SLEEP STUDY NON-FC Pepe Kincaid MD [address] [place] [address] Phone: tel: fax: [facility] [address] [place] [address] Referral ID Status Reason Start Date Expiration Date Visits Requested Visits Authorized [id number] ZZ Not Required Specialty Services Required 03/14/2013 1 1 Encounter Details Date Type Department Care Team (Late st Contact Info) Description 03/14/2013 Orders Only [facility] Pulmonary [address] [facility] [address] [place] [address] Pepe Kincaid MD [address] [place] [address] Social History Tobacco Use Types [...] 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 Not on file Not on file documented as of this encounter Plan of Treatment Scheduled Orders Name Type Priority Associated Diagnoses Orde r Schedule REQUEST FOR SLEEP STUDY NON-FC Procedures Routine Snoring Ordered: 03/14/2013 documented as of this encounter Visit Diagnoses Diagnosis Snoring- Primary Other dyspnea and respiratory abnormality documented in this encounter Care Teams Non Licensed Nuclear Plant Operator Relationship Specialty Start Date End Date Adam Rossi MD [address] [place] [address] PCP - General 08/10/09 03/19/14 Martha Crump APRN [address] [place] [address] PCP - Backup PCP Internal Medicine 05/19/11 04/20/14 Ewa Nino MD [address] [place] [address] PCP - General Family Medicine 03/20/14 documented as of this encounter
--- OUTSIDE RECORDS SUMMARY | 2024-12-10 16:23 | XMS_ITS | Encounter Summary ---
Author Organization [facility] Address [address] [place] [address] Care Team Providers Care Quality Assistant Name Role Phone Adam Rossi MD Primary Care Provider [phone] Jack Adkins MD Primary Care Provider [phone] Stephen Martins MD Primary Care Provider [phone] Fabian Correa MD Primary Care Provider [phone] Kathleen Ball DNP Unavailable [phone] Martha Crump ARCHITECTURAL ADMINISTRATIVE ASSISTANT BC Unavailable Unavail able Ewa Nino MD Primary Care Provider [phone] Encounter Details Date Type Department Care Team (Late st Contact Info) Description 09/05/2006 Orders Only [facility] [address] [place] [id number] MD [address] [place] [address] Social History Tobacco Use Types Packs/Day Years [...] 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 Not on file Not on file documented as of this encounter Plan of Treatment Not on file documented as of this encounter Results * Due to [place] state law, this organization might not be [...] RESULT Final Resul t [facility] [address] [place] [address] documented in this encounter Visit Diagnoses Diagnosis OSTEOARTHRITIS- Primary Osteoarthrosis, unspecified whether generalized or localized, unspecified site OSTEOARTHRITIS Osteoarthrosis, unspecified whether generalized or localized, unspecified site documented in this encounter Care Teams Quality Assistant Relationship Specialty Start Date End Date Adam Rossi MD [address] [place] [address] PCP - General 08/10/09 03/19/14 Jakc Adkins MD [address] [place] [address] PCP - General 11/17/08 08/09/09 Stephen Martins MD [address] [place] [address] PCP - General 11/11/07 11/16/08 Fabian Correa MD [address] [place] [address] PCP - General 06/22/06 11/10/07 Kathleen Ball DNP [address] [place] [address] PCP - Backup PCP 11/11/07 05/18/11 Martha Crump APRN [address] [place] [address] PCP - Backup PCP Internal Medicine 05/19/11 04/20/14 Ewa Nino MD [address] [place] [address] PCP - General Family Medicine 03/20/14 documented as of this encounter
--- OUTSIDE RECORDS SUMMARY | 2024-12-10 16:23 | XMS_ITS | Encounter Summary ---
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 Author Blood Pressure < 140/90 Blood Pressure 145/85( 014 12:55 PM EST) No Kayla Winter CMA documented as of this encounter Results * Due to [place] [...] pes planus. Small plantar and posterior calcaneal enthesophytes. 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 No fractures. No joint dislocation. Soft tissues appear normal. IMPRESSION: 1. Small calcaneal enthesophytes. 2. Mild pes planus. 3. 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 Procedure Note [...] limb documented in this encounter Care Teams Typo Machine Operator Relationship Specialty Start Date End Date Ewa Nino MD PCP - General Family Medicine 03/20/14 documented as of this encounter
--- OUTSIDE RECORDS SUMMARY | 2024-12-10 16:23 | XMS_ITS | Encounter Summary ---
Author Organization [facility] Address [address] [place] [address] Care Team Providers Care Residential Program Manager Name Role Phone Adam Rossi MD Primary Care Provider Jack Adkins MD Primary Care Provider [phone] Stephen Martins MD Primary Care Provider [phone] Fabian Correa MD Primary Care Provider [phone] Kathleen Ball DNP Unavailable [phone] Martha Crump HAND DRILLER BC Unavailable Unavail able Ewa Nino MD Primary Care Provider [phone] Encounter Details Date Type Department Care Team (Late st Contact Info) Description 09/04/2006 Orders Only [facility] Otolaryngology [address] [facility] [address] [place] [address] Eloisa Johnston, RN MSN Social History Tobacco [...] 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 Not on file Not on file documented as of this encounter Plan of Treatment Not on file documented as of this encounter Visit Diagnoses Not on filedocumented in this encounter Care Teams Residential Program Manager Relationship Specialty Start Date End Date Adam Rossi MD [address] [place] [address] PCP - General 08/10/09 03/19/14 Jack Adkins MD [address] [place] [address] PCP - General 11/17/08 08/09/09 Stephen Martins MD [address] [place] [address] PCP - General 11/11/07 11/16/08 Fabian Correa MD [address] [place] [address] PCP - General 06/22/06 11/10/07 Kathleen Ball, [facility] [address] [place] [address] PCP - Backup PCP 11/11/07 05/18/11 Martha Crump, HAND DRILLER [address] [place] [address] PCP - Backup PCP Internal Medicine 05/19/11 04/20/14 Ewa Nino MD [address] [place] [address] PCP - General Family Medicine 03/20/14 documented as of this encounter
--- OUTSIDE RECORDS SUMMARY | 2024-12-10 16:23 | XMS_ITS | Patient Health Record ---
Author Organization [facility] Address [address] [place], [place] [address] Care Team Providers Care Time Study Technician Name Role Phone Phu Lepe Primary Care Provider Unavailable Jose Brooke Unavailable [phone] Allergies Allergen (clinical drug ingredient) Drug/Non Drug Allergy documented on EMR Reaction Allergy Type Onset Date Status Keflex anaphylaxis Drug Allergy Activ e Penicillin anaphylaxis Drug Allergy Acti ve Reason For Referral No Information Medications Medication SIG (Take, Route, Frequency, Duration) Notes Start Date End Date Status CPAP* DX: LIZBETH G47.33 Airsense 10 Auto, heated hose, heated humidifier, compliance, supplies: filter, cushion, headgear, humidifier tub as directed SETTINGS:5-15cm/H2O SIG DATE: 04/17/2017 During sleep nightly for the treatment of sleep apnea; Duration: lifetime Secondary Dx: Hypersomnia G47.10 04/16/2017 Active APAP Machine- 5-15 cm H2O using FFM and heated humidification Nightly q hs 06/08/2017 Active Aspirin 81 MG Tablet Delayed Release 1 tablet Orally Once a day Active Lisinopril 10 MG Tablet Oral Active CPAP PRESSURE CHANGE as directed ANTONIETA SETTIN-20 cm/h20 SIG DATE: 07/19/2017 DX: G47.33 During sleep at night for the treatment of sleep apnea; Duration: LIFETIME 07/19/2017 Active Pravastatin Sodium 20 MG Tablet Oral; Duration: 90 Active amLODIPine Besylate 10 MG Tablet Oral; Duration: 90 Active FLUoxetine HCl 40 MG Capsule Oral; Duration: 90 Active Naproxen 500 MG Tablet take 1 tablet by mouth every 12 hours if needed . TAKE WITH FOOD. Oral; Duration: 30 Active Suboxone 8-2 MG Film (Schedule III Drug) PLACE 1 1/2 FILMS UNDER THE TONGUE ONCE A DAY Sublingual; Duration: 28 Active Immunizations Vaccine Route Administration Date Status Comme nts Zz Flucelvax Quadrivelant 2017 Unknown 11/08/2016 Admin istered [facility] Social History Social History Additional Details Category Social Info Options Details Social History Occupation: work at post office Occup. exposure: None Alcohol: None Recreational drug use: None Marital status Problems Problem Type SNOMED Code ICD Code Onset Dates Problem Status W/U Status Risk Notes Problem Hypersomnia (78807668) Hypersomnia, unspecified (G47.10) Active confirmed Problem Hypertension (85142139) Hypertension (I10) Active confirmed Problem Obstructive sleep apnea (68923181) Obstructive sleep apnea (G47.33) Active confirmed Problem Obesity (587416194) Obesity (E66.9) Active confirmed Plan Of Treatment Pending Test Test Name Order Date Chest X-Ray PA and Lateral 02/26/2017 Sleep Home Sleep Testing 03/14/2017 Future Test Test Name Order Date SLEEP STUDY CPAP/BiPAP TITRATION 018 Insurance Providers Payer Name Payer Address Payer Phone Subscriber Number Group Number Insured Name Patient Relationship to Insured Coverage Start Date Coverage End Date [facility] [address] [place] [phone] [id number] José Miguel Samaniego Self - patient is the insured Medical (General) History Medical History History ICD Code Depression F32.9 Dyslipidemia E78.5 Hypertension I10 Obesity E66.9 Back pain M54.9 Surgical History Surgery Date(Month/Year) Colonoscopy Elbow surgery Pilonidal cyst excision
--- OUTSIDE RECORDS SUMMARY | 2024-12-10 16:23 | XMS_ITS | Encounter Summary ---
Author Organization [facility] Address [address] [place] [address] Care Team Providers Care General Production Laborer Name Role Phone Adam Rossi MD Primary Care Provider Jack Adkins MD Primary Care Provider [phone] Stephen Martins MD Primary Care Provider [phone] Kathleen Ball DNP Unavailable [phone] Martha Crump APRN Unavailable Unavail able Ewa Nino MD Primary Care Provider Reason for Referral * OUTPT P&D-MED SOLUTIONS (Routine) - ZZ Not Required Specialty Diagnoses / Procedures Referred By Susy garrido Referred To Contact Magnetic Resonance Imaging Diagnoses Liver cyst Back pain Procedures REQUEST FOR MRI ABDOMEN W/O CONTRAST FC Kathleen Ball DNP [address] [place] [address] Phone: tel: fax: [address] [place] [address] Magnetic Resonance Imaging [address] [place] [address] Phone: tel: Referral ID Status Reason Start Date Expiration Date Visits Requested Visits Authorized [id number] ZZ Not Required Specialty Services Required 09/03/2008 1 1 Encounter Details Date Type Department Care Team (Late st Contact Info) Description 09/03/2008 Orders Only [facility] [address] [place] [id number] Kathleen Ball DNP [address] [place] [address] Social History Tobacco Use Types Packs/Day Years [...] 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 Procedure Name Priority Date/Time Associated Diagnosis Comments MRI ABDOMEN W/O CONTRAST MATERIAL(S) FOLLOWED BY CONTRAST MATERIAL(S) AND Routine 09/08/2008 9:45 AM EDT documented in this encounter Results * Due to [place] law, this organization might not be sharing [...] LIVER CYST TEST(S) PROCESSED BY [facility] AT [facility] Kathleen Ball DNP CONTRAST STUDY- OTHER Final Result documented in this encounter Visit Diagnoses Diagnosis Liver cyst Other specified disorders of liver Back pain Backache, unspecified documented in this encounter Care Teams General Production Laborer Relationship Specialty Start Date End Date Adam Rossi MD [address] [place] [address] PCP - General 08/10/09 03/19/14 Jack Adkins MD [address] [place] [address] PCP - General 11/17/08 08/09/09 Stephen Martins MD [address] [place] [address] PCP - General 11/11/07 11/16/08 Kathleen Ball DNP [address] [place] [address] PCP - Backup PCP 11/11/07 05/18/11 Martha Crump, TUBE DRAW HELPER [address] [place] [address] PCP - Backup PCP Internal Medicine 05/19/11 04/20/14 Ewa Nino MD [address] [place] [address] PCP - General Family Medicine 03/20/14 documented as of this encounter
--- OUTSIDE RECORDS SUMMARY | 2024-12-10 16:23 | XMS_ITS | Encounter Summary ---
Author Organization [facility] Address [address] [place] [address] Care Team Providers Care Hog Sawyer Name Role Phone Adam Rossi MD Primary Care Provider [phone] Kathleen Ball DNP Unavailable [phone] Martha Crump RACK CLEANER BC Unavailable Unavail able Ewa Nino MD Primary Care Provider [phone] Encounter Details Date Type Department Care Team (Late st Contact Info) Description 08/03/2010 Orders Only [facility] [address] [place] [address] Kathleen Ball, DNP [address] [place] [address] Social History Tobacco Use Types Packs/Day Years [...] 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 Not on file Not on file documented as of this encounter Plan of Treatment Not on file documented as of this encounter Procedures * Due to [place] law, this organization might not be sharing [...] DNP LABORATORY Final Result [facility] [address] [place] [address] documented in this encounter Visit Diagnoses Diagnosis Left foot pain Pain in limb documented in this encounter Care Teams Hog Sawyer Relationship Specialty Start Date End Date Adam Rossi MD [address] [place] [address] PCP - General 08/10/09 03/19/14 Kathleen Ball DNP [address] [place] [address] PCP - Backup PCP 11/11/07 05/18/11 Martha Crump, BO [address] [place] [address] PCP - Backup PCP Internal Medicine 05/19/11 04/20/14 Ewa Nino MD [address] [place] [address] PCP - General Family Medicine 03/20/14 documented as of this encounter
--- OUTSIDE RECORDS SUMMARY | 2024-12-10 16:23 | XMS_ITS | Encounter Summary ---
Author Organization [facility] Address [address] [place] [address] Care Team Providers Care Tearoom Host/Hostess Name Role Phone Adam Rossi MD Primary Care Provider [phone] Jack Adkins MD Primary Care Provider [phone] Stephen Martins MD Primary Care Provider [phone] Fabian Correa MD Primary Care Provider [phone] Kathleen Ball DNP Unavailable [phone] Martha Crump MINE SURVEYOR BC Unavailable Unavail able Ewa Nino MD Primary Care Provider [phone] Encounter Details Date Type Department Care Team (Late st Contact Info) Description 07/25/2006 Orders Only [facility] General Vascular Surgery [address] [facility] [address] [place] [address] Geraldo Souza MD Medications Social History Tobacco [...] 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 on file Not on file documented as of this encounter Plan of Treatment Not on file documented as of this encounter Visit Diagnoses Not on filedocumented in this encounter Care Teams Tearoom Host/Hostess Relationship Specialty Start Date End Date Adam Rossi MD [address] [place] [address] PCP - General 08/10/09 03/19/14 Jack Adkins MD [address] [place] [address] PCP - General 11/17/08 08/09/09 Stephen Martins MD [address] [place] [address] PCP - General 11/11/07 11/16/08 Fabian Correa MD [address] [place] [address] PCP - General 06/22/06 11/10/07 Kathleen Ball, DNP [address] [place] [address] PCP - Backup PCP 11/11/07 05/18/11 Martha Crump, MINE SURVEYOR [address] [place] [address] PCP - Backup PCP Internal Medicine 05/19/11 04/20/14 Ewa Nino MD [address] [place] [address] PCP - General Family Medicine 03/20/14 documented as of this encounter
--- OUTSIDE RECORDS SUMMARY | 2024-12-10 16:23 | XMS_ITS | Encounter Summary ---
Author Organization [facility] Address [address] [place] [address] Care Team Providers Care Dehydration Plant Operator Name Role Phone Adam Rossi MD Primary Care Provider [phone] aKthleen Ball DNP Unavailable [phone] Martha Crmup TOWNSHIP SUPERVISOR BC Unavailable Unavail able Ewa Nino MD Primary Care Provider [phone] Encounter Details Date Type Department Care Team (Late st Contact Info) Description 01/14/2010 Orders Only [facility] [address] [place] [address] MD [address] [place], [place] [id number] Social History Tobacco Use Types Packs/Day Years [...] 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 Procedure Name Priority Date/Time Associated Diagnosis Comments CK, CREATINE KINASE (CPK, TOTAL) Routine 01/14/2010 OSTEOARTHRITIS documented in this encounter Results * Due to [place] [employer] law, this organization might not be sharing [...] RESULT Final Resul t Performing Organization Address City/State/[facility] Co de Phone Number [facility] [address] [place] [address] documented in this encounter Visit Diagnoses Diagnosis OSTEOARTHRITIS Osteoarthrosis, unspecified whether generalized or localized, unspecified site documented in this encounter Care Teams Dehydration Plant Operator Relationship Specialty Start Date End Date Adam Rossi MD [address] [place] [address] PCP - General 08/10/09 03/19/14 Kathleen Ball DNP [address] [place] [address] PCP - Backup PCP 11/11/07 05/18/11 Martha Crump, TOWNSHIP SUPERVISOR [address] [place] [address] PCP - Backup PCP Internal Medicine 05/19/11 04/20/14 Ewa Nino MD [address] [place] [address] PCP - General Family Medicine 03/20/14 documented as of this encounter
--- OUTSIDE RECORDS SUMMARY | 2024-12-10 16:23 | XMS_ITS | Encounter Summary ---
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 * MITOCHONDRIAL ANTIBODY W/REFLEX TO TITER (05/25/2011 11:47 AM EDT) Mitochondria Ab Negative Negative [facility] Comment:{MITOCHONDRIAL AB SC REEN {[id number]) 05/25/2011 11:4 7 AM EDT 05/25/2011 6:28 PM EDT Narrative Resulting Agency Comment [id number] Kathleen Ball DNP LABORATORY Final Result [facility] [address] [place] [address] * HEPATITIS C ANTIBODY, SERUM (05/25/2011 11:47 AM EDT) Hepatitis C virus Ab NON-REACTI VE NON-REACT SOLEDAD [facility] Comment:{HEPATITIS C ANTIBOD Y {[id number]) Hepatitis C virus Ab Signal/Cutoff 0.07 <1.00 [facility] Comment:{SIGNAL TO CUT-OFF { [id number]) 05/25/2011 11:4 7 AM EDT 05/25/2011 6:28 PM EDT Narrative Resulting Agency Comment [id number] Kathleen Garciailwillard [facility] LABORATORY Final Result [facility] [address] [place] [address] * HEPATITIS A ANTIBODY, TOTAL WITH REFLEX TO IGM (05/25/2011 11:47 AM EDT) Hepatitis A virus Ab NON-REACTI VE NON-REACT SOLEDAD [facility] Comment:{HEPATITIS A AB, TOT AL W/REFL IGM {[id number]) 05/25/2011 11:4 7 AM EDT 05/25/2011 6:28 PM EDT Narrative Resulting Agency Comment [id number] Kathleen Garciailwillard [facility]ORY Final Result Performing Organization Address [facility] Co de Phone Number [facility] [address] [place] [address] * HEPATITIS B CORE ANTIBODY, TOTAL, SERUM (05/25/2011 11:47 AM EDT) Hepatitis B virus core Ab NON-REACTI VE NON-REACT SOLEDAD [facility] Comment:{HEPATITIS B CORE AB TOTAL {[id number]) 05/25/2011 11:4 7 AM EDT 05/25/2011 6:28 PM EDT Narrative Resulting Agency Comment [id number] Kathleen Garciailwillard [facility] Final Result [facility] [address] [place] [address] * HEPATITIS B SURFACE ANTIGEN (05/25/2011 11:47 AM EDT) Hepatitis B virus surface Ag NON-REACTI VE NON-REACT SOLEDAD [facility] Comment:{HEPATITIS B SURFACE ANTIGEN {[id number]) 05/25/2011 11:4 7 AM EDT 05/25/2011 6:28 PM EDT Narrative Resulting Agency Comment [id number] Kathleen Abel [facility] Final Result Performing Organization Address [facility] de Phone Number [facility] [address] [place] [address] * IRON PROFILE (IRON/TIBC), SERUM (05/25/2011 11:47 AM EDT) Iron 126 45 - 170 mcg/dL [facility] Comment:{IRON, TOTAL {[id number]) Iron binding capacity 375 250 - 425 mcg/dL [facility] Comment:{IRON BINDING CAPACI TY {[id number]) Iron saturation 34 20 - 50 % (calc) [facility] Comment:{% SATURATION {[id number]) 05/25/2011 11:4 7 AM EDT 05/25/2011 6:28 PM EDT Narrative Resulting Agency Comment [id number] Kathleen K [facility] Final Result Performing Organization Address [facility] de Phone Number [facility] [address] [place] [address] * FERRITIN (05/25/2011 11:47 AM EDT) Pathologist [facility] Ferritin 101 20 - 380 ng/mL [facility] Comment:{FERRITIN {[id number]) 05/25/2011 11:4 7 AM EDT 05/25/2011 6:28 PM EDT Narrative Resulting Agency Comment [id number] Kathleen [facility] Final Result Performing Organization Address [facility] de Phone Number [facility] [address] [place] [address] * (ABNORMAL) HEPATIC FUNCTION PANEL (05/25/2011 11:47 AM EDT) Protein Total (Serum) 6.9 6.2 - 8.3 g/dL [facility] Comment:{PROTEIN, TOTAL {[id number]) Albumin 4.6 3.6 - 5.1 g/dL [facility] Comment:{ALBUMIN {[id number]) Globulin 2.3 2.1 - 3.7 g/dL (calc) [facility] Comment:{GLOBULIN {[id number]) Albumin/Globulin 2.0 1.0 - 2.1 (calc) [facility] Comment:{ALBUMIN/GLOBULIN RA FABIOLA {[id number]) Bilirubin Total 0.9 0.2 - 1.2 mg/dL [facility] Comment:{BILIRUBIN, TOTAL {[id number]) Bilirubin Direct 0.2 < OR = 0.2 mg/dL [facility] Comment:{BILIRUBIN, DIRECT { [id number]) Bilirubin Indirect 0.7 0.2 - 1.2 mg/dL (calc) [facility] Comment:{BILIRUBIN, INDIRECT {[id number]) Alkaline phosphatase 48 40 - 115 U/L [facility] Comment:{ALKALINE PHOSPHATAS E {[id number]) AST (SGOT) 38(H) 10 - 35 U/L [facility] Comment:{AST {[id number]) ALT (SGPT) 68(H) 9 - 60 U/L [facility] Comment:{ALT {[id number]) 05/25/2011 11:4 7 AM EDT 05/25/2011 6:28 PM EDT Narrative Resulting Agency Comment [id number] Kathleen Ball DNP LABORATORY Final Result Performing Organization Address City/State/[facility] Co de Phone Number [facility] [address] [place] [address] documented in this encounter Visit Diagnoses Diagnosis LFT elevation Other abnormal blood chemistry Obesity Obesity, unspecified documented in this encounter Care Teams Assistant Terminal Manager Relationship Specialty Start Date End Date Adam Rossi MD [address] [place] [address] PCP - General 08/10/09 03/19/14 Martha Crump, BASIC SCIENCES DEAN [address] [place] [address] PCP - Backup PCP Internal Medicine 05/19/11 04/20/14 Ewa Nino MD [address] [place] [address] PCP - General Family Medicine 03/20/14 documented as of this encounter
--- OUTSIDE RECORDS SUMMARY | 2024-12-10 16:23 | XMS_ITS | Clinical Summary ---
Author Organization [facility] Address [address] [place] [address] Care Team Providers Care Combatant Diver Officer Name Role Phone Ewa Nino MD Primary Care Provider [phone] Allergies Active Allergy Reactions Criticality Noted Date [...] back. He denies low back pain. 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 on file Last Filed Vital Signs Vital Sign Reading Time Taken Comments Blood Pressure 145/85 03/14/2013 12:55 PM EST le ft large Pulse 78 03/14/2013 12:55 PM EST Temperature 36.8 C (98.3 F) 07/29/2008 2:01 PM EDT Respiratory Rate 12 04/11/2007 2:23 PM EST [...] Tdap) 07/03/2016, 11/30/1994 Abdominal Aorta Imaging 2022 09/09/19, 09/02/2008, 09/02/2008 COVID-19 Vaccine ( - 2024-2 6 season) 2024 Influenza (#1) 2024 RSV (1 - 1-dose 75+ series) 2032 Hepatitis C Screening Completed 05/25/2011 , 04/10/2000 HPV Vaccine (No Doses Required) Completed Hep A Aged Out No longer eligi [...] Kayla Winter CMA Procedures * Due to [place] [employer] law, this organization might not be sharing [...] to Health Maintenance Results * Due to [place] law, this organization might not be sharing negative HIV tests. * HEPATITIS C ANTIBODY, SERUM (05/25/2011 11:47 AM EDT) Hepatitis C virus Ab NON-REACTI VE NON-REACT SOLEDAD [facility] Comment:{HEPATITIS C ANTIBOD Y {[id number]) Hepatitis C virus Ab Signal/Cutoff 0.07 <1.00 [facility] Comment:{SIGNAL TO CUT-OFF { [id number]) 05/25/2011 11:4 7 AM EDT 05/25/2011 6:28 PM EDT Narrative Resulting Agency Comment [id number] Kathleen Ball DNP LABORATORY Final Result [facility] [address] [place] [address] * MRI ABDOMEN W/O CONTRAST MATERIAL(S) FOLLOWED [...] LIVER CYST TEST(S) PROCESSED BY [facility] AT [facility] Kathleen Ball DNP CONTRAST STUDY- OTHER Final Result from Last 3 Months or Most Recently Relevant to Health Maintenance Insurance BCBS FFS [employer] Care Teams Combatant Diver Officer Relationship Specialty Start Date End Date Ewa Nino MD PCP - General Family Medicine 03/20/14
--- OUTSIDE RECORDS SUMMARY | 2024-12-10 16:23 | XMS_ITS | Encounter Summary ---
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 * HEPATIC FUNCTION PANEL (01/16/2013 7:04 AM EST) Protein Total (Serum) 6.8 6.1 - 8.1 g/dL [facility] Comment:{PROTEIN, TOTAL {[id number]) Albumin 4.5 3.6 - 5.1 g/dL [facility] Comment:{ALBUMIN {[id number]) Globulin 2.3 1.9 - 3.7 g/dL (calc) [facility] Comment:{GLOBULIN {[id number]) Albumin/Globulin 2.0 1.0 - 2.5 (calc) [facility] Comment:{ALBUMIN/GLOBULIN RA FABIOLA {[id number]) Bilirubin Total 1.0 0.2 - 1.2 mg/dL [facility] Comment:{BILIRUBIN, TOTAL {[id number]) Bilirubin Direct 0.2 < OR = 0.2 mg/dL [facility] Comment:{BILIRUBIN, DIRECT { [id number]) Bilirubin Indirect 0.8 0.2 - 1.2 mg/dL (calc) [facility] Comment:{BILIRUBIN, INDIRECT {[id number]) Alkaline phosphatase 47 40 - 115 U/L [facility] Comment:{ALKALINE PHOSPHATAS E {[id number]) AST (SGOT) 30 10 - 35 U/L [facility] Comment:{AST {[id number]) ALT (SGPT) 38 9 - 46 U/L [facility] Comment:{ALT {[id number]) 01/16/2013 7:04 AM EST 01/16/2013 6:28 PM EST Narrative Resulting Agency Comment [id number] Martha Crump APRN LABORATORY Final Re sult [facility] [address] [place] [address] * (ABNORMAL) BASIC METABOLIC PANEL WITH (GFR) (01/16/2013 7:04 AM EST) Glucose 106(H) 65 - 99 mg/dL [facility] Comment: {GLUCOSE {[id number]) Fasting reference interval Urea Nitrogen Blood (BUN) 21 7 - 25 mg/dL [facility] Comment:{UREA NITROGEN (BUN) {[id number]) Creatinine 0.82 0.70 - 1.33 mg/dL [facility] Comment: {CREATININE {[id number]) For patients >49 years of age, the reference limit for Creatinine is approximately 13% higher for people identified as -E[place]ian. GFR 100 > OR = 60 mL/min/1 .73m2 [facility] Comment:{eGFR NON-AFR. AMERI CAN {[id number]) GFR () 115 > OR = 60 mL/min/1 .73m2 [facility] Comment:{eGFR AMERIC AN {[id number]) BUN/Creatinine Ratio NOT APPLICABLE 6 - (calc) [facility] Comment:{BUN/CREATININE RATI O {[id number]) Sodium 138 135 - 146 mmol/L [facility] Comment:{SODIUM {[id number]) Potassium 4.4 3.5 - 5.3 mmol/L [facility] Comment:{POTASSIUM {[id number]) Chloride 103 98 - 110 mmol/L [facility] Comment:{CHLORIDE {[id number]) Carbon dioxide 25 19 - 30 mmol/L [facility] Comment:{CARBON DIOXIDE {[id number]) Calcium 9.5 8.6 - 10.3 mg/dL [facility] Comment:{CALCIUM {[id number]) 01/16/2013 7:04 AM EST 01/16/2013 6:28 [...] needs for GFR calculation. Resulting Agency Comment [id number] Martha Crump APRN LABORATORY Final Re sult [facility] [address] [place] [address] * (ABNORMAL) LIPID PANEL WITH REFLEX TO DIRECT LDL (01/16/2013 7:04 AM EST) Cholesterol 226(H) 125 - 200 mg/dL [facility] Comment:{CHOLESTEROL, TOTAL {[id number]) HDL Cholesterol 52 > OR = 40 mg/dL [facility] Comment:{HDL CHOLESTEROL {[id number]) Triglyceride 72 <150 mg/dL [facility] Comment:{TRIGLYCERIDES {[id number]) LDL Cholesterol 160(H) <130 mg/dL (calc) [facility] Comment: {LDL-CHOLESTEROL {[id number]) Desirable range <100 mg/dL for patients with CHD or diabetes and <70 mg/dL for diabetic patients with known heart disease. CHOL/HDL Ratio 4.3 < OR = 5.0 (calc) [facility] Comment:{CHOL/HDLC RATIO {[id number]) Cholesterol Non-HDL 174(H) mg/dL (calc) [facility] Comment: {NON HDL CHOLESTEROL {[id number]) Target for non-HDL cholesterol is 30 mg/dL higher than LDL cholesterol target. 01/16/2013 7:04 AM EST 01/16/2013 6:28 PM EST Narrative Resulting Agency Comment [id number] Martha Crump APRN LABORATORY Final Re sult Performing Organization Address City/State/[facility] Co de Phone Number [facility] [address] [place] [address] * (ABNORMAL) HEMOGLOBIN A1C (01/16/2013 7:04 AM EST) Hemoglobin A1C 5.9(H) <5.7 % of total Hgb [facility] Comment: {HEMOGLOBIN A1c {[id number]) According to ADA guidelines, hemoglobin A1c <7.0% represents optimal control in non- diabetic patients. Different metrics may apply to specific patient populations. Standards of Medical Care in Diabetes-2013. Diabetes Care. 2013;36:s11-s66 For the purpose of screening for the presence of diabetes <5.7% Consistent with the absence of diabetes 5.7-6.4% Consistent with increased risk for diabetes (prediabetes) >or=6.5% Consistent with diabetes This assay result is consistent with an increased risk of diabetes. Currently, no consensus exists for use of hemoglobin A1c for diagnosis of diabetes for children. Estimated Average Glucose 133 mg/dL (calc) [facility] Comment:{MEAN PLASMA GLUCOSE {[id number]) 01/16/2013 7:04 AM EST 01/16/2013 6:28 PM EST Narrative Resulting Agency Comment [id number] Martha Crump VOCATIONAL CASE MANAGER LABORATORY Final Re sult [facility] [address] [place] [address] documented in this encounter Visit Diagnoses Diagnosis Hyperlipidemia- Primary Other and unspecified hyperlipidemia Hypertension goal BP (blood pressure) < 130/80 Unspecified essential hypertension Elevated glycohemoglobin Other abnormal blood chemistry documented in this encounter Care Teams Teacher Cclc Relationship Specialty Start Date End Date Adam Rossi MD [address] [place] [address] PCP - General 08/10/09 03/19/14 Martha Crump, BO [address] [place] [address] PCP - Backup PCP Internal Medicine 05/19/11 04/20/14 Ewa Nino MD [address] [place] [address] PCP - General Family Medicine 03/20/14 documented as of this encounter
--- OUTSIDE RECORDS SUMMARY | 2024-12-10 16:23 | XMS_ITS | Encounter Summary ---
Author Organization [facility] Address [address] [place] [address] Care Team Providers Care Slab Depiler Operator Name Role Phone Adam Rossi MD Primary Care Provider [phone] Kathleen Ball DNP Unavailable [phone] Martha Crump LEATHER CLEANER BC Unavailable Unavail able Ewa Nino MD Primary Care Provider [phone] Encounter Details Date Type Department Care Team (Late st Contact Info) Description 01/14/2010 Orders Only [facility] [address] [place] [address] Kathleen Ball, DNP [address] [place] [address] Social History Tobacco Use Types Packs/Day Years [...] 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 Not on file documented as of this encounter Plan of Treatment Not on file documented as of this encounter Visit Diagnoses Diagnosis Special screening for malignant neoplasms, colon Screening for prostate cancer Special screening for malignant neoplasm of prostate documented in this encounter Care Teams Slab Depiler Operator Relationship Specialty Start Date End Date Adam Rossi MD [address] [place] [address] PCP - General 08/10/09 03/19/14 Kathleen Ball DNP [address] [place] [address] PCP - Backup PCP 11/11/07 05/18/11 Martha Crump APRN [address] [place] [address] PCP - Backup PCP Internal Medicine 05/19/11 04/20/14 Ewa Nino MD [address] [place] [address] PCP - General Family Medicine 03/20/14 documented as of this encounter
--- OUTSIDE RECORDS SUMMARY | 2024-12-10 16:23 | XMS_ITS | Clinical Summary ---
Author Organization [facility] Address [address] [address] Phone Care Team Providers Care Academic Services Professional Name Role Phone Ruchi, First Name Unknown [facility] [place] Primary Care Provider Encounters Date Type Department Care Team Description 09/11/2024 2:25 PM EDT - 09/11/2024 11:59 PM EDT Hospital Encounter [facility] Anatomic Pathology [address] [place] [address] Discharge Disposition: Home or Self Care from Last 3 Months Social History Tobacco Use Types Packs/Day Years Used Date Smoking Tobacco: Never Assessed Education Answer Date Recorded Are you interested in more education? Not on cornelia e 09/11/2024 Are you concerned about learning? Not on file 09/11/2024 No 09/11/2024 No 09/11/2024 Digital Access Answer Date Recorded No 09/11/2024 No 09/11/2024 Reliable internet access at home? Not on file 09/11/2024 Device with a working camera? Not on file Sex and Gender Information Value Date Recorded Sex Assigned at Not on file Legal Sex Male 2:21 PM EDT Gender Identity Not on file Sexual Orientation Not on file Plan of Treatment Not on file Medical Devices Not on file Insurance MEDICARE PART A & B MEDICARE PART A & B MEDICARE PART A & B MEDICARE PART A & B MEDICARE PART A & B MEDICARE PART A & B Care Teams Academic Services Professional Relationship Specialty Start Date End Date Mindyguichomohit, First Name Unknown, MBBS [address] [place] [address] [email or web address] PCP - General Diagnostic Radiology 09/12/24 Additional Source Comments The information contained in this document represents components of the legal health record. It is not the complete legal health record.[facility]
--- OUTSIDE RECORDS SUMMARY | 2024-12-10 16:23 | XMS_ITS | Encounter Summary ---
Author Organization [facility] Address [address] [place] [address] Care Team Providers Care Catering Coordinator Name Role Phone Adam Rossi MD Primary Care Provider [phone] Kathleen Ball DNP Unavailable [phone] Martha Crump PULPIT OPERATOR BC Unavailable Unavail able Ewa Nino MD Primary Care Provider Encounter Details Date Type Department Care Team (Late st Contact Info) Description 01/14/2010 Orders Only [facility] [address] [place] [address] Adam Rossi MD [address] [place] [address] Social History Tobacco Use Types Packs/Day Years [...] 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 documented in this encounter Plan of Treatment Not on file documented as of this encounter Procedures * Due to [place] [employer] law, this organization might not be sharing [...] in this encounter Results * Due to [place] [employer] law, this organization might not be sharing negative HIV tests. * PSA (PROSTATE SPECIFIC AG) TOTAL DIAGNOSTIC OR FOLLOW-UP (01/14/2010) PSA 0.5 0 - 4.0 NG/ML [facility] Comment: THIS TEST WAS PERFORMED USING THE SIEMENS ([employer]) CHEMILUMINESCENT METHOD. VALUES OBTAINED FROM DIFFERENT ASSAY METHODS CANNOT BE USED INTERCHANGEABLY. PSA LEVELS, REGARDLESS OF VALUE, SHOULD NOT BE INTERPRETED ABSOLUTE EVIDENCE OF THE PRESENCE OR ABSENCE OF DISEASE. 01/14/2010 01/14/2010 3:1 2 PM EST Adam Rossi MD LABORATORY Final Result Performing Organization Address City/State/[facility] Co de Phone Number [facility] [address] [place] [address] * (ABNORMAL) CBC 5 PART DIFF (01/14/2010) [...] RESULT Final Res ult [facility] [address] [place] [address] * (ABNORMAL) BASIC METABOLIC PANEL W/GLOMERULAR FILTRATION [...] LABORATORY Final Result Performing Organization Address [facility] Co de Phone Number [facility] [address] [place] [address] * ALANINE AMINOTRANSFERASE (ALT), SERUM (01/14/2010) ALT (SGPT) 46 9 - 60 U/L [facility] 01/14/2010 01/14/2010 3:1 2 PM EST Adam Rossi MD LAB SAME DAY RESULT Final Res ult Performing Organization Address [facility] de Phone Number [facility] [address] [place] [address] * (ABNORMAL) LIPID PANEL + CARDIAC RISK WITH REFLEX TO LDL DIRECT (01/14/2010) CHOLESTEROL, TOTAL 229(H) 125 - 200 MG/DL [facility] TRIGLYCERIDES 93 30 - 149 MG/DL [facility] HDL-CHOLESTEROL 61 40 - 77 MG/DL [facility] LDL-CHOLESTEROL 149(H) 62 - 130 MG/DL [facility] Comment: RISK CATEGORY: LDL-CHOLESTEROL GOAL CHD AND CHD RISK EQUIVALENTS: <100 MULTIPLE (2+) FACTORS: <130 ZERO TO ONE RISK FACTOR: <160 CHD RELATIVE RISK RATIO (TOTAL/HDL) 3.75 0.0 - 5.0 [facility] Comment:(0.6 X AVERAGE) 01/14/2010 01/14/2010 3:1 2 PM EST Adam Rossi MD LABORATORY Final Result Performing Organization Address [facility] de Phone Number [facility] [address] [place] [address] documented in this encounter Visit Diagnoses Diagnosis Hyperlipidemia Other and unspecified hyperlipidemia Obesity Obesity, unspecified Chronic back pain Backache, unspecified Screening for condition Screening for unspecified condition documented in this encounter Care Teams Catering Coordinator Relationship Specialty Start Date End Date Adam Rossi MD [address] [place] [address] PCP - General 08/10/09 03/19/14 Kathleen Ball DNP [address] [place] [address] PCP - Backup PCP 11/11/07 05/18/11 Martha Crump, PULPIT OPERATOR [address] [place] [address] PCP - Backup PCP Internal Medicine 05/19/11 04/20/14 Ewa Nino MD [address] [place] [address] PCP - General Family Medicine 03/20/14 documented as of this encounter
--- OUTSIDE RECORDS SUMMARY | 2024-12-10 16:23 | XMS_ITS | Encounter Summary ---
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 * MITOCHONDRIAL ANTIBODY W/REFLEX TO TITER (05/25/2011 11:47 AM EDT) Mitochondria Ab Negative Negative [facility] Comment:{MITOCHONDRIAL AB SC REEN {[id number]) 05/25/2011 11:4 7 AM EDT 05/25/2011 6:28 PM EDT Narrative Resulting Agency Comment [id number] Kathleen Ball DNP LABORATORY Final Result [facility] [address] [place] [address] * HEPATITIS C ANTIBODY, SERUM (05/25/2011 11:47 AM EDT) Hepatitis C virus Ab NON-REACTI VE NON-REACT SOLEDAD [facility] Comment:{HEPATITIS C ANTIBOD Y {[id number]) Hepatitis C virus Ab Signal/Cutoff 0.07 <1.00 [facility] Comment:{SIGNAL TO CUT-OFF { [id number]) 05/25/2011 11:4 7 AM EDT 05/25/2011 6:28 PM EDT Narrative Resulting Agency Comment [id number] Kathleen Roman [facility] LABORATORY Final Result Performing Organization Address City/[facility] Co de Phone Number [facility] [address] [place] [address] * HEPATITIS A ANTIBODY, TOTAL WITH REFLEX TO IGM (05/25/2011 11:47 AM EDT) Hepatitis A virus Ab NON-REACTI VE NON-REACT SOLEDAD [facility] Comment:{HEPATITIS A AB, TOT AL W/REFL IGM {[id number]) 05/25/2011 11:4 7 AM EDT 05/25/2011 6:28 PM EDT Narrative Resulting Agency Comment [id number] Kathleen Ball [facility] LABORATORY Final Result Performing Organization Address [facility] de Phone Number [facility] [address] [place] [address] * HEPATITIS B CORE ANTIBODY, TOTAL, SERUM (05/25/2011 11:47 AM EDT) Hepatitis B virus core Ab NON-REACTI VE NON-REACT SOLEDAD [facility] Comment:{HEPATITIS B CORE AB TOTAL {[id number]) 05/25/2011 11:4 7 AM EDT 05/25/2011 6:28 PM EDT Narrative Resulting Agency Comment [id number] Kathleen Abel Ball [facility] LABORATORY Final Result Performing Organization Address City/[facility] Co de Phone Number [facility] [address] [place] [address] * HEPATITIS B SURFACE ANTIGEN (05/25/2011 11:47 AM EDT) Hepatitis B virus surface Ag NON-REACTI VE NON-REACT SOLEDAD [facility] Comment:{HEPATITIS B SURFACE ANTIGEN {[id number]) 05/25/2011 11:4 7 AM EDT 05/25/2011 6:28 PM EDT Narrative Resulting Agency Comment [id number] Kathleen Ball [facility] LABORATORY Final Result Performing Organization Address [facility] Co de Phone Number [facility] [address] [place] [address] * IRON PROFILE (IRON/TIBC), SERUM (05/25/2011 11:47 AM EDT) Iron 126 45 - 170 mcg/dL [facility] Comment:{IRON, TOTAL {[id number]) Iron binding capacity 375 250 - 425 mcg/dL [facility] Comment:{IRON BINDING CAPACI TY {[id number]) Iron saturation 34 20 - 50 % (calc) [facility] Comment:{% SATURATION {[id number]) 05/25/2011 11:4 7 AM EDT 05/25/2011 6:28 PM EDT Narrative Resulting Agency Comment [id number] Kathleen Ball [facility] LABORATORY Final Result Performing Organization Address [facility] de Phone Number [facility] [address] [place] [id number] * FERRITIN (05/25/2011 11:47 AM EDT) Ferritin 101 20 - 380 ng/mL [facility] Comment:{FERRITIN {[id number]) 05/25/2011 11:4 7 AM EDT 05/25/2011 6:28 PM EDT Narrative Resulting Agency Comment [id number] Kathleen Ball [facility] LABORATORY Final Result Performing Organization Address [facility] Co de Phone Number [facility] [address] [place] [address] * (ABNORMAL) HEPATIC FUNCTION PANEL (05/25/2011 11:47 AM EDT) Protein Total (Serum) 6.9 6.2 - 8.3 g/dL [facility] Comment:{PROTEIN, TOTAL {[id number]) Albumin 4.6 3.6 - 5.1 g/dL [facility] Comment:{ALBUMIN {[id number]) Globulin 2.3 2.1 - 3.7 g/dL (calc) [facility] Comment:{GLOBULIN {[id number]) Albumin/Globulin 2.0 1.0 - 2.1 (calc) [facility] Comment:{ALBUMIN/GLOBULIN RA FABIOLA {[id number]) Bilirubin Total 0.9 0.2 - 1.2 mg/dL [facility] Comment:{BILIRUBIN, TOTAL {[id number]) Bilirubin Direct 0.2 < OR = 0.2 mg/dL [facility] Comment:{BILIRUBIN, DIRECT { [id number]) Bilirubin Indirect 0.7 0.2 - 1.2 mg/dL (calc) [facility] Comment:{BILIRUBIN, INDIRECT {[id number]) Alkaline phosphatase 48 40 - 115 U/L [facility] Comment:{ALKALINE PHOSPHATAS E {[id number]) AST (SGOT) 38(H) 10 - 35 U/L [facility] Comment:{AST {[id number]) ALT (SGPT) 68(H) 9 - 60 U/L [facility] Comment:{ALT {[id number]) 05/25/2011 11:4 7 AM EDT 05/25/2011 6:28 PM EDT Narrative Resulting Agency Comment [id number] Kathleen Ball DNP LABORATORY Final Result [facility] [address] [place] [address] * PROSTATE SPECIFIC ANTIGEN (PSA) TOTAL, SERUM (05/23/2011 9:30 AM EDT) PSA 0.6 < OR = 4.0 ng/mL [facility] Comment: {PSA, TOTAL {[id number]) This test was performed using the Siemens chemiluminescent method. Values obtained from different assay methods cannot be used interchangeably. PSA levels, regardless of value, should not be interpreted as absolute evidence of the presence or absence of disease. 05/23/2011 9:30 AM EDT 05/23/2011 7:57 PM EDT Narrative Resulting Agency Comment [id number] Kathleen Roman Lizzy DNP LABORATORY Final Result [facility] [address] [place] [address] * BASIC METABOLIC PANEL WITH (GFR) (05/23/2011 9:30 AM EDT) Glucose 90 65 - 99 mg/dL [facility] Comment: {GLUCOSE {[id number]) Fasting reference interval Urea Nitrogen Blood (BUN) 17 7 - 25 mg/dL [facility] Comment:{UREA NITROGEN (BUN) {[id number]) Creatinine 0.74 0.70 - 1.33 mg/dL [facility] Comment: {CREATININE {[id number]) For patients >49 years of age, the reference limit for Creatinine is approximately 13% higher for people identified as -[place]. GFR 105 > OR = 60 mL/min/1 .73m2 [facility] Comment:{eGFR NON-AFR. AMERI CAN {[id number]) GFR () 122 > OR = 60 mL/min/1 .73m2 [facility] Comment:{eGFR AMERIC AN {[id number]) BUN/Creatinine Ratio NOT APPLICABLE 6 - 22 (calc) [facility] Comment:{BUN/CREATININE RATI O {[id number]) Sodium 137 135 - 146 mmol/L [facility] Comment:{SODIUM {[id number]) Potassium 4.0 3.5 - 5.3 mmol/L [facility] Comment:{POTASSIUM {[id number]) Chloride 103 98 - 110 mmol/L [facility] Comment:{CHLORIDE {[id number]) Carbon dioxide 22 21 - 33 mmol/L [facility] Comment:{CARBON DIOXIDE {[id number]) Calcium 9.6 8.6 - 10.3 mg/dL [facility] Comment:{CALCIUM {[id number]) 05/23/2011 9:30 AM EDT 05/23/2011 7:57 [...] needs for GFR calculation. Resulting Agency Comment [id number] Kathleen Ball [facility] LABORATORY Final Result Performing Organization Address [facility]/ZIP Co de Phone Number [facility] [address] [place] [address] * (ABNORMAL) ALANINE AMINOTRANSFERASE (ALT), SERUM (05/23/2011 9:30 AM EDT) ALT (SGPT) 78(H) 9 - 60 U/L [facility] Comment:{ALT {[id number]) 05/23/2011 9:30 AM EDT 05/23/2011 7:57 PM EDT Narrative Resulting Agency Comment [id number] Kathleen Ball [facility] SAME DAY RESULT Final Re sult Performing Organization Address [facility] Co de Phone Number [facility] [address] [place] [address] * (ABNORMAL) LIPID PANEL WITH REFLEX TO DIRECT LDL (05/23/2011 9:30 AM EDT) Cholesterol 230(H) 125 - 200 mg/dL [facility] Comment:{CHOLESTEROL, TOTAL {[id number]) HDL Cholesterol 59 > OR = 40 mg/dL [facility] Comment:{HDL CHOLESTEROL {[id number]) Triglyceride 81 <150 mg/dL [facility] Comment:{TRIGLYCERIDES {[id number]) LDL Cholesterol 155(H) <130 mg/dL (calc) [facility] Comment: {LDL-CHOLESTEROL {[id number]) Desirable range <100 mg/dL for patients with CHD or diabetes and <70 mg/dL for diabetic patients with known heart disease. CHOL/HDL Ratio 3.9 < OR = 5.0 (calc) [facility] Comment:{CHOL/HDLC RATIO {[id number]) Cholesterol Non-HDL 171 mg/dL (calc) [facility] Comment: {NON-HDL CHOLESTEROL {[id number]) Target for non-HDL cholesterol is 30 mg/dL higher than LDL cholesterol target. 05/23/2011 9:30 AM EDT 05/23/2011 7:57 PM EDT Narrative Resulting Agency Comment [id number] Kathleen Ball DNP LABORATORY Final Result Performing Organization Address City/State/[facility] Co de Phone Number [facility] [address] [place] [address] documented in this encounter Visit Diagnoses Diagnosis HTN (hypertension) Unspecified essential hypertension Lipid screening Screening for lipoid disorders Screening for prostate cancer Special screening for malignant neoplasm of prostate LFT elevation Other abnormal blood chemistry Obesity Obesity, unspecified documented in this encounter Care Teams Electrician'S Helper Relationship Specialty Start Date End Date Adam Rossi MD [address] [place] [address] PCP - General 08/10/09 03/19/14 Martha Crump APRN [address] [place] [address] PCP - Backup PCP Internal Medicine 05/19/11 04/20/14 Ewa Nino MD [address] [place] [address] PCP - General Family Medicine 03/20/14 documented as of this encounter
== END 2024-12-10 13:47 | disposition home or self-care (01) ==
LOC: HO.HCC 12:57
PROVIDERS: Visit Provider Internal Medicine
DX: F11.90 Opioid use, unspecified, uncomplicated (principal)
CPT/HCPCS: 99213

== ENCOUNTER → 2024-12-10 12:56 | Outpatient (BNVA) | payer MEDICARE, BC, SELFPAY | PROVIDERS: Visit Provider Internal Medicine | DX: F11.20 Opioid dependence, uncomplicated (principal) | CPT/HCPCS: 99212 ==